=== PATIENT | male | born 1945 | race Caucasian/White ===

== ENCOUNTER → 2018-02-28 09:06 | Outpatient (CLI) | payer MEDICARE, OTHER, SELFPAY ==
[2018-02-28 10:35] LABS: Alanine Aminotransferase 39 IU/L (21-72); Aspartate Aminotransferase 34 IU/L (17-59); Cholesterol 146 mg/dL (140-199); HDL Cholesterol 60 mg/dL (40-60); LDL Cholesterol Calculated 72 mg/dL (<100); Triglycerides 68 mg/dL (35-150)
== END ==
PROVIDERS: PCP Internal Medicine; Visit Provider Internal Medicine
DX: E78.5 Hyperlipidemia, unspecified (principal)
CPT/HCPCS: 36415; 80061; 84450; 84460

== ENCOUNTER → 2018-12-26 10:55 | Outpatient (CLI) | payer MEDICARE, OTHER, SELFPAY ==
--- NOTE | 2018-12-26 | DI.US.S_ITS ---
PROCEDURE: US AXILLARY ONLY INDICATIONS: PERSONAL HISTORY OF MALIGNANT MELANOMA OF SKIN TECHNIQUE: Real-time focused scanning was performed of the left axilla, with image documentation. COMPARISON: None. FINDINGS: Ultrasound evaluation in the left axilla demonstrates no enlarged axillary lymph nodes. No discrete mass or fluid collection identified. IMPRESSION: 1. No enlarged lymph node or mass demonstrated in the left axilla. Dictated by: Yash Estrada M.D. on 12/27/2018 at 14:16 Approved by: Yash Estrada M.D. on 12/27/2018 at 14:18
== END ==
PROVIDERS: Family Provider Internal Medicine; PCP Internal Medicine; Visit Provider Physician Assistant
DX: Z85.820 Personal history of malignant melanoma of skin (principal)
CPT/HCPCS: 76882

== ENCOUNTER → 2019-04-20 08:19 | Outpatient (CLI) | payer MEDICARE, OTHER, SELFPAY ==
[2019-04-20 10:08] LABS: Cholesterol 247 mg/dL (140-199); HDL Cholesterol 53 mg/dL (40-60); LDL Cholesterol Calculated 173 mg/dL (<100); Triglycerides 105 mg/dL (35-150)
[2019-04-22 21:54] LABS: Lipoprotein (a) 54 nmol/L (<75)
== END ==
PROVIDERS: PCP Internal Medicine; Visit Provider Internal Medicine Cardiovascular Disease
DX: E78.49 Other hyperlipidemia (principal)
CPT/HCPCS: 36415; 80061; 83695

== ENCOUNTER → 2019-06-07 08:27 | Outpatient (CLI) | payer MEDICARE, OTHER, SELFPAY ==
[2019-06-07 09:09] LABS: HEMOLYSIS < 15 (0-50)
[2019-06-07 09:23] LABS: Alanine Aminotransferase 19 IU/L (21-72); Aspartate Aminotransferase 28 IU/L (17-59); BUN Creatinine Ratio 17.1 (6-22); Blood Urea Nitrogen 12 mg/dL (9-20); Calcium 9.5 mg/dL (8.4-10.2); Carbon Dioxide 28 mmol/L (22-32); Chloride 107 mmol/L (98-107); Cholesterol 254 mg/dL (140-199); Estimated Glomerular Filt Rate > 60.0 mL/min (>60); Glucose 104 mg/dL (80-110); HDL Cholesterol 43 mg/dL (40-60); LDL Cholesterol Calculated 193 mg/dL (<100); Potassium 4.5 mmol/L (3.4-5.1); Sodium 139 mmol/L (137-145); Triglycerides 90 mg/dL (35-150)
[2019-06-07 09:54] LABS: Vitamin D 25 Hydroxy (D3) 31.9 ng/mL (30.0-100.0)
[2019-06-07 15:17] LABS: Prostate Specific Antigen Scrn 4.85 ng/mL (0.1-4.0)
== END ==
PROVIDERS: PCP Internal Medicine; Visit Provider Internal Medicine
DX: Z13.1 Encounter for screening for diabetes mellitus (principal); Z12.5 Encounter for screening for malignant neoplasm of prostate; E78.5 Hyperlipidemia, unspecified; E55.9 Vitamin D deficiency, unspecified
CPT/HCPCS: 36415; 80048; 80061; 82306; 84450; 84460; G0103

== ENCOUNTER → 2020-03-11 06:56 | Outpatient (CLI) | payer MEDICARE, OTHER, SELFPAY ==
[2020-03-11 08:43] LABS: Cholesterol 294 mg/dL (140-199); HDL Cholesterol 47 mg/dL (40-60); LDL Cholesterol Calculated 217 mg/dL (<100); Triglycerides 150 mg/dL (35-150)
[2020-03-13 08:12] LABS: Cholesterol, Total 307 mg/dL (100-199); HDL-Cholesterol 55 mg/dL (>39); HDL-Particle (Total) 36.1 umol/L (>=30.5); LDL Particle 2786 nmol/L (<1000); LDL Size 20.9 nm (>20.5); LDL-Cholsterol 225 mg/dL (0-99); LP-IR Score 65 (<=45); Small LDL- Particle 1544 nmol/L (<=527); Triglycerides 136 mg/dL (0-149)
== END ==
PROVIDERS: PCP Internal Medicine; Referring Provider Internal Medicine; Visit Provider Internal Medicine
DX: E78.5 Hyperlipidemia, unspecified (principal)
CPT/HCPCS: 36415; 80061; 83704

== ENCOUNTER → 2020-04-15 11:48 | Outpatient (CLI) | payer MEDICARE, OTHER, SELFPAY ==
[2020-04-15 14:14] LABS: BUN Creatinine Ratio 14.5 (6-22); Blood Urea Nitrogen 12 mg/dL (9-20); Calcium 9.4 mg/dL (8.4-10.2); Carbon Dioxide 27 mmol/L (22-32); Chloride 102 mmol/L (98-107); Estimated Glomerular Filt Rate > 60.0 mL/min (>60); Glucose 111 mg/dL (80-110); HEMOLYSIS < 15 (0-50); Sodium 137 mmol/L (137-145)
== END ==
PROVIDERS: PCP Internal Medicine; Referring Provider Physician Assistant; Visit Provider Physician Assistant
DX: Z85.820 Personal history of malignant melanoma of skin (principal)
CPT/HCPCS: 36415; 80048

== ENCOUNTER → 2020-04-17 11:03 | Outpatient (CLI) | payer MEDICARE, OTHER, SELFPAY ==
--- NOTE | 2020-04-17 12:05 | DI.CT.S_ITS ---
PROCEDURE: CT CHEST ABD PEL W CON INDICATIONS: PERSONAL HISTORY OF SKIN CANCER TECHNIQUE: After the administration of oral and intravenous contrast, 5 mm thick sections acquired from the lung apices to the symphysis. 5 mm coronal and sagittal reformats were performed, with additional 7 mm coronal MIP reformats through the lungs. For radiation dose reduction, the following was used: automated exposure control, adjustment of mA and/or kV according to patient size. COMPARISON: None. FINDINGS: Image quality: Excellent. CHEST: Lungs and pleura: No acute airspace opacities. Note is made of linear scarring at each lung base and a small degree of lung parenchyma and pleural scarring at each apex. No pleural effusions or pneumothorax. Central and peripheral airways appear patent and normal in caliber. Mediastinum: Heart size is normal. No pericardial effusion. No mediastinal or hilar adenopathy by size criteria. Thoracic aorta and central pulmonary arteries are normal in size. Esophagus is normal in caliber. No hiatal hernia. Chest wall: No axillary or supraclavicular adenopathy by size criteria. Thyroid gland contains a hypodensity at the middle 3rd of the right thyroid lobe, measuring up to 1.1 cm in maximal dimension, and potentially simply a cyst but possibly a low-density thyroid nodule.. ABDOMEN: Solid organs: Liver is normal in size and enhancement. Gallbladder appears normal . Biliary system is non dilated. Pancreas enhances normally. Spleen is normal in size and enhancement. No adrenal nodules. Kidneys demonstrate normal size and enhancement, without hydronephrosis. Peritoneum and bowel: Bowel loops demonstrate normal wall thickness and caliber. No free fluid or air. Nodes and vessels: No retroperitoneal or mesenteric adenopathy by size criteria. Aorta and inferior vena cava are normal in size. There is a retro aortic left renal vein. Miscellaneous: No ventral hernias. PELVIS: Genitourinary: Bladder wall thickness is normal. Miscellaneous: No inguinal hernias or adenopathy. Prior arthroplasty right hip, metal artifact mildly degrades quality of visualization of the lower pelvis. Bones: No suspicious bony lesions. No vertebral body compression fractures. IMPRESSION: Mild lung parenchymal scarring, both at each lung base and at the upper lungs bilaterally. No sign of the skin lesion, no evidence of metastatic disease. Please specify the type of skin cancer if possible. Note is made of a hypodensity within the right thyroid lobe, measuring up to 1.1 cm. A more accurate assessment could be made with thyroid ultrasound. Dictated by: Dave Saul M.D. on 04/17/2020 at 13:47 Approved by: Dave Saul M.D. on 04/17/2020 at 13:53
== END ==
PROVIDERS: PCP Internal Medicine; Referring Provider Physician Assistant; Visit Provider Physician Assistant
DX: R22.2 Localized swelling, mass and lump, trunk (principal); Z85.820 Personal history of malignant melanoma of skin; J98.4 Other disorders of lung; Z96.641 Presence of right artificial hip joint
CPT/HCPCS: 71260; 74177

== ENCOUNTER → 2020-05-01 10:56 | Outpatient (CLI) | payer MEDICARE, OTHER, SELFPAY ==
--- NOTE | 2020-05-01 | DI.US.S_ITS ---
PROCEDURE: US THYROID INDICATIONS: NODULES TECHNIQUE: Real-time scanning was performed of the thyroid gland, with image documentation. COMPARISON: None. FINDINGS: Right: Thyroid lobe measures 5.7 x 1.7 x 2.0 cm, and is homogeneous in echotexture. Multiple colloid cysts, largest measuring 1.2 cm. Left: Thyroid lobe measures 3.8 x 1.4 x 1.7 cm, and is homogenous in echotexture. 3 mm colloid cyst. Isthmus: 3.3 mm thick. IMPRESSION: Small bilateral colloid cysts. Dictated by: Jakub Neumann [facility] Interpreted: Jaspreet Mathur MD on 05/01/2020 at 15:48 Approved by: Jaspreet Mathur M.D. on 05/01/2020 at 16:00
== END ==
PROVIDERS: PCP Internal Medicine; Referring Provider Physician Assistant; Visit Provider Physician Assistant
DX: E04.2 Nontoxic multinodular goiter (principal)
CPT/HCPCS: 76536

== ENCOUNTER → 2020-06-16 10:05 | Outpatient (CLI) | payer MEDICARE, OTHER, SELFPAY ==
[2020-06-16 11:40] LABS: Alanine Aminotransferase 29 IU/L (<50); Aspartate Aminotransferase 44 IU/L (17-59); Cholesterol 147 mg/dL (140-199); HDL Cholesterol 49 mg/dL (40-60); LDL Cholesterol Calculated 82 mg/dL (<100); Triglycerides 82 mg/dL (35-150)
== END ==
PROVIDERS: PCP Internal Medicine; Referring Provider Internal Medicine; Visit Provider Internal Medicine
DX: E78.5 Hyperlipidemia, unspecified (principal)
CPT/HCPCS: 36415; 80061; 84450; 84460

== ENCOUNTER → 2020-12-11 07:49 | Outpatient (CLI) | payer MEDICARE, OTHER, SELFPAY ==
[2020-12-11 09:17] LABS: Alanine Aminotransferase 31 IU/L (<50); Albumin 4.1 g/dL (3.5-5.0); Albumin Globulin Ratio 1.8 (1.0-2.8); Alkaline Phosphatase 56 U/L (38-126); Aspartate Aminotransferase 43 IU/L (17-59); BUN Creatinine Ratio 17.1 (6-22); Bilirubin Total 0.6 mg/dL (0.2-1.3); Blood Urea Nitrogen 13 mg/dL (9-20); Calcium 9.3 mg/dL (8.4-10.2); Carbon Dioxide 27 mmol/L (22-32); Chloride 105 mmol/L (98-107); Cholesterol 160 mg/dL (140-199); Estimated Glomerular Filt Rate > 60.0 mL/min (>60); Globulin 2.3 g/dL (1.7-4.1); Glucose 108 mg/dL (80-110); HDL Cholesterol 49 mg/dL (40-60); HEMOLYSIS < 15 (0-50); LDL Cholesterol Calculated 90 mg/dL (<100); Potassium 4.6 mmol/L (3.4-5.1); Sodium 139 mmol/L (137-145); Total Protein 6.4 g/dL (6.3-8.2); Triglycerides 107 mg/dL (35-150)
== END ==
PROVIDERS: PCP Internal Medicine; Referring Provider Internal Medicine; Visit Provider Internal Medicine
DX: E78.5 Hyperlipidemia, unspecified (principal)
CPT/HCPCS: 36415; 80053; 80061

== ENCOUNTER → 2021-06-09 07:59 | Outpatient (CLI) | payer MEDICARE, OTHER, SELFPAY ==
[2021-06-09 09:01] LABS: Alanine Aminotransferase 26 IU/L (<50); Albumin 4.4 g/dL (3.5-5.0); Albumin Globulin Ratio 1.8 (1.0-2.8); Alkaline Phosphatase 52 U/L (38-126); Aspartate Aminotransferase 35 IU/L (17-59); BUN Creatinine Ratio 14.9 (6-22); Bilirubin Total 0.7 mg/dL (0.2-1.3); Blood Urea Nitrogen 11 mg/dL (9-20); Calcium 9.4 mg/dL (8.4-10.2); Carbon Dioxide 28 mmol/L (22-32); Chloride 107 mmol/L (98-107); Cholesterol 162 mg/dL (140-199); Estimated Glomerular Filt Rate > 60.0 mL/min (>60); Globulin 2.5 g/dL (1.7-4.1); Glucose 101 mg/dL (80-110); HDL Cholesterol 47 mg/dL (40-60); HEMOLYSIS < 15 (0-50); LDL Cholesterol Calculated 97 mg/dL (<100); Potassium 4.5 mmol/L (3.4-5.1); Sodium 142 mmol/L (137-145); Total Protein 6.9 g/dL (6.3-8.2); Triglycerides 88 mg/dL (35-150)
[2021-06-09 09:51] LABS: Hep C Virus Ab w/Reflex Quant NEGATIVE s/c (NEGATIVE)
[2021-06-10 09:00] LABS: PSA Free % 18.9 % (.); PSA, Total 5.4 ng/mL (0.0-4.0)
== END ==
PROVIDERS: PCP Internal Medicine; Referring Provider Internal Medicine; Visit Provider Internal Medicine
DX: E78.5 Hyperlipidemia, unspecified (principal); Z12.5 Encounter for screening for malignant neoplasm of prostate; Z11.59 Encounter for screening for other viral diseases
CPT/HCPCS: 36415; 80053; 80061; 84153; 84154; 86803; G0103

== ENCOUNTER → 2021-12-25 14:32 | Outpatient (CLI) | payer MEDICARE, OTHER, SELFPAY ==
--- NOTE | 2021-12-25 14:35 | DI.CT.S_ITS ---
PROCEDURE: CT ABDOMEN PELVIS W CON INDICATIONS: Epigastric pain TECHNIQUE: After the administration of oral and intravenous contrast, axial sections were acquired from the lung bases to the pubic symphysis. Coronal and sagittal reformats were performed. For radiation dose reduction, the following was used: automated exposure control, adjustment of mA and/or kV according to patient size. COMPARISON:[facility], CT, CT CHEST ABD PEL W CON, 04/17/2020, 11:54. FINDINGS: Image quality: Excellent. Lung bases: There are several partially imaged pulmonary nodules in the right lower lobe measuring up to 1.1 cm (image 16/series 5). Heart: No significant findings. ABDOMEN: Liver: There are innumerable variably sized hepatic hypodense lesions scattered throughout the liver. These are a new finding and concerning for metastatic disease. Gallbladder: Unremarkable. Biliary ducts: No intrahepatic or extrahepatic biliary ductal dilatation identified. Pancreas: There is an oval hypodense mass identified at the level of the pancreatic body/neck junction it appears to be outside of the pancreas with associated mass effect upon the ventral margin of the pancreas and the dorsal aspect of the adjacent gastric antrum. This mass measures approximately 3.3 x 2.9 cm in axial transverse dimension (image 32/series 2) and approximately 3.0 cm in craniocaudal dimension. Pancreas otherwise demonstrates homogeneous enhancement without focal lesions or pancreatic ductal dilatation. No peripancreatic inflammation or organized fluid collections. Spleen: Unremarkable. Adrenal Glands: Unremarkable. Kidneys and Ureters: Kidneys are symmetric in size and enhancement, and there is no obstructive uropathy. No perinephric inflammatory changes. Ureters are normal in course and caliber. Stomach and Bowel: Stomach, small bowel loops, and colon are unremarkable. A few scattered colonic diverticula without evidence for acute diverticulitis. Peritoneum: No abnormal intraperitoneal fluid. No free air. Ventral Wall: No hernia. Abdominal Nodes: Multiple scattered enlarged retroperitoneal lymph nodes are identified. The largest are seen near the level of the renal veins measuring 1.8 x 2.5 cm (image 34/series 2). A few prominent periportal lymph nodes are also present. Vessels: Aorta and inferior vena cava are normal in size. PELVIS: Pelvic Organs: Unremarkable. Bladder: Unremarkable. Pelvic Nodes: No pelvic sidewall lymphadenopathy. Miscellaneous: No inguinal hernias are seen. Bones: Status post right total hip arthroplasty. As before, right hip surgical hardware causes significant beam hardening/streak artifact which obscures visualization of the lower pelvic structures. No acute compression fracture seen. Moderate multilevel spondylitic changes seen throughout the imaged spine. There is a possible ill-defined lucency involving the lateral aspect of the right 9th rib demonstrating mild cortical irregularity. No definite fracture or overlying mass seen. IMPRESSION: 1. Innumerable hepatic hypodensities worrisome for hepatic metastases. 2. Incompletely evaluated right lower lobe pulmonary nodules, also suspicious for metastatic disease. 3. Numerous enlarged retroperitoneal lymph nodes and prominent periportal lymph nodes which are also suspicious for metastatic disease. 4. A 3.3 cm oval hypodense mass situated between the posterior wall of the distal gastric antrum and ventral margin of the pancreas which may represent a focal mass versus lymphadenopathy. No evidence for acute inflammatory changes of the pancreas. 5. Possible ill-defined osteolytic lesion involving the lateral aspect of the right 9th rib. 6. Colonic diverticulosis without acute diverticulitis. 7. Status post right total hip arthroplasty. 8. . Moderate multilevel spondylosis of the imaged spine. No evidence for acute compression fractures. Findings were discussed with Dr. Shah at 1650 hrs. Dictated by: Jermaine Lutz M.D. on 12/25/2021 at 16:33 Approved by: Jermaine Lutz M.D. on 12/25/2021 at 17:01
== END ==
PROVIDERS: PCP Internal Medicine; Referring Provider Internal Medicine; Visit Provider Internal Medicine
DX: R10.13 Epigastric pain (principal); K76.9 Liver disease, unspecified; R91.8 Other nonspecific abnormal finding of lung field; R59.0 Localized enlarged lymph nodes; K57.90 Diverticulosis of intestine, part unspecified, without perforation or abscess without bleeding; M47.816 Spondylosis without myelopathy or radiculopathy, lumbar region; Z96.641 Presence of right artificial hip joint
CPT/HCPCS: 74177; Q9967

== ENCOUNTER → 2022-01-20 11:12 | Outpatient (CLI) | payer MEDICARE, OTHER, SELFPAY ==
--- NOTE | 2022-01-20 | DI.MRI.S_ITS ---
PROCEDURE: MR HEAD/BRAIN WO/W CON INDICATIONS: Secondary malignant neoplasm of brain TECHNIQUE: Noncontrast axial T1 spin echo, axial T2 fast spin echo, sagittal and axial FLAIR, coronal T2 fast spin echo, axial gradient echo, axial diffusion and ADC through the brain. After the administration of contrast, axial and coronal T1 spin echo with fat saturation through the brain. COMPARISON: [facility], CT, CT CHEST W CON, 01/20/2022, 12:00. Outside Facility, RG, CT HEAD WITH CONTRAST, 01/08/2022, 7:11. FINDINGS: Image quality: Excellent. CSF spaces: Basal cisterns are patent. No extra-axial fluid collections. Ventricles are normal in size and shape. Brain: Approximately a mild enhancing foci can be seen within the brain, which are largely centered along the birch-white matter junctions. However, there is also focus seen within the left thalamus measuring 6 mm, as on series 13, image 81. The largest solitary focus can be seen within the inferior right temporal lobe measuring 1 cm, as on series 13, image 52. Mild surrounding edema can be seen. No midline shift. There is cerebral volume loss for age. There is periventricular white matter chronic small vessel ischemic change. The brainstem appears normal. Diffusion-weighted images demonstrate no acute ischemic insults. No chronic ischemic insults. Normal intravascular flow voids are present. Skull and face: Calvarial marrow is normal in signal. Orbits appear normal. Sinuses: Sinuses and mastoids appear clear. IMPRESSION: Approximately 8 mildly enhancing intracranial lesions, which are mostly seen along the birch-white matter junctions. The largest of these foci measures up to 1 cm. These represent metastatic disease until proven otherwise Dictated by: Johnathon Berger M.D. on 01/20/2022 at 11:34 Approved by: Johnathon Berger M.D. on 01/20/2022 at 11:40
--- NOTE | 2022-01-20 | DI.CT.S_ITS ---
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 1 mm axial lung, 5 mm thick coronal and sagittal reformats and 7 mm axial MIP were acquired. For radiation dose reduction, the following was used: automated exposure control, adjustment of mA and/or kV according to patient size. COMPARISON: [facility], CT, CT CHEST ABD PEL W CON, 04/17/2020, 11:54. [facility], CT, CT ABDOMEN PELVIS W CON, 12/25/2021, 16:09. FINDINGS: Image quality: Excellent. Lungs and pleura: Several discrete pulmonary soft tissue nodules are seen. Right upper lobe, series 3, image 107, 10 x 8 mm, new Left upper lobe, series 3, image 142, 11 x 11 mm, new Lingula laterally, series 3, image 168, 4 x 3 mm, new Right middle lobe medially, series 3, image 172, 6 x 5 mm, new No pleural effusions or pneumothorax. Mild dependent atelectasis can be seen. Central and peripheral airways are patent and normal in caliber. Mediastinum: Heart size is normal. No pericardial effusion. No mediastinal or hilar adenopathy by size criteria. Thoracic aorta and central pulmonary arteries are normal in size. Esophagus is normal in caliber. No hiatal hernia. Bones and chest wall: A few low-density lesions can be seen within the bones, with the most suspicious of these seen on series 6, image 39 within the T9 vertebral body. Focal sclerosis can be seen within the right medial 3rd rib, which is similar to the prior examination and most likely related to a benign bone island. No vertebral body compression fractures. Age-appropriate bony degenerative changes are seen. No axillary or supraclavicular adenopathy by size criteria. Thyroid gland demonstrates generalized prominence, with a discrete stable nodule seen on the right measuring 1 cm. Abdomen: Numerous low-density liver masses are seen, which have clearly progressed compared to the prior CT examination. Generalized thickening is seen of the adrenal glands. There is a left retroperitoneal lymph node seen on series 2 image 64 measuring 16 x 12 mm. The visualized portions of the upper abdominal structures are otherwise unremarkable for imaging technique. IMPRESSION: New pulmonary nodules are seen, which represent metastatic disease until proven otherwise. Worsening of liver metastatic disease, compared to the recent MRI dated 12/25/2021. Generalized thickening is seen of the adrenal glands, also most likely related to metastatic involvement. There is an enlarged left retroperitoneal lymph node seen, which is also most likely related to metastasis. More subtle lytic lesions can be seen within the bones, which are also suspicious for metastatic disease. Incidental note is made of: Stable right thyroid nodule Dictated by: Johnathon Berger M.D. on 01/20/2022 at 14:56 Approved by: Johnathon Berger M.D. on 01/20/2022 at 15:05
== END ==
PROVIDERS: PCP Internal Medicine; Referring Provider Internal Medicine Medical Oncology; Visit Provider Internal Medicine Medical Oncology
DX: C79.31 Secondary malignant neoplasm of brain (principal); C78.7 Secondary malignant neoplasm of liver and intrahepatic bile duct; C78.01 Secondary malignant neoplasm of right lung; C78.02 Secondary malignant neoplasm of left lung; C80.1 Malignant (primary) neoplasm, unspecified; E27.9 Disorder of adrenal gland, unspecified; M89.9 Disorder of bone, unspecified; R59.0 Localized enlarged lymph nodes; E04.1 Nontoxic single thyroid nodule; R10.13 Epigastric pain
CPT/HCPCS: 70553; 71260; Q9967

== ENCOUNTER 2022-01-26 15:44 | Emergency (ER) | payer MEDICARE, OTHER, SELFPAY ==
[2022-01-26 15:47] VITALS: BP 105/56; PULSE 87; RESP 18; TEMP 36.3; O2SAT 95
[2022-01-26 17:04] LABS: Alanine Aminotransferase 42 IU/L (<50); Albumin 3.4 g/dL (3.5-5.0); Albumin Globulin Ratio 1.1 (1.0-2.8); Alkaline Phosphatase 437 U/L (38-126); Aspartate Aminotransferase 131 IU/L (17-59); BUN Creatinine Ratio 21.3 (6-22); Bilirubin Total 0.9 mg/dL (0.2-1.3); Blood Urea Nitrogen 20 mg/dL (9-20); Calcium 8.7 mg/dL (8.4-10.2); Carbon Dioxide 35 mmol/L (22-32); Chloride 87 mmol/L (98-107); Estimated Glomerular Filt Rate > 60 mL/min (>60); Glucose 116 mg/dL (80-110); HEMOLYSIS < 15 (0-50); Lipase 26 U/L (23-300); Potassium 4.3 mmol/L (3.4-5.1); Sodium 128 mmol/L (137-145); Total Protein 6.4 g/dL (6.3-8.2)
[2022-01-26 17:08] LABS: Add Manual Diff / Slide Review NO; Basophils Absolute Auto 0 /uL (0-100); Basophils Percent Auto 0.5 % (0-2); Eosinophils Absolute Auto 200 /uL (0-450); Eosinophils Percent Auto 1.8 % (2-4); Hematocrit 38.9 % (41-53); Lymphocytes Absolute Auto 1700 /uL (1100-4500); Lymphocytes Percent Auto 17.8 % (25-40); Mean Corpuscular HGB Conc 33.3 % (30-36); Mean Corpuscular Hemoglobin 27.8 PG (26-34); Mean Corpuscular Volume 83.6 fL (80-100); Monocytes Absolute Auto 600 /uL (0-900); Monocytes Percent Auto 6.4 % (3-14); Neutrophils Absolute Auto 7200 /uL (1500-7000); Neutrophils Percent Auto 73.5 % (50-75); Platelet Count 383 X10^3/uL (150-400); Red Blood Cell Count 4.66 X10^6/uL (4.5-5.9); White Blood Cell Count 9.8 X10^3/uL (4.5-11.0)
--- NOTE | 2022-01-26 19:45 | ED.MALEGU ---
HPI - Male Genitourinary General Chief complaint: Urogenital-Male Stated complaint: blood in bladder, sent by in [place] Time Seen by Provider: 01/26/22 19:01 Source: patient Mode of arrival: Ambulatory History of Present Illness HPI Narrative: 76-year-old male nonsmoker with intra-abdominal melanoma managed by the [facility] presents at their request for evaluation of hematuria over the past few days. He denies any dizziness, weakness or lightheadedness. He has no chest pain or shortness of breath. He states that he has chronic generalized abdominal pain but did have a brief sharp and sudden onset pain in his left groin yesterday that has since resolved. He denies any recurrence of that pain. His generalized pain is constant intense be worse with motion and improves with rest. He does take chronic pain medications and due to increased symptoms as of late he had been increasing the frequency of his oxycodone use. He denies any significant change in bowel habits. He has been having blood in his urine for at least the past 2 days but denies frequency or urgency. Related Data Home Medications Medication Instructions Recorded Confirmed rosuvastatin 10 mg tablet 10 mg PO DAILY 11/23/21 11/23/21 Previous Rx's Medication Instructions Recorded cyclobenzaprine 10 mg tablet 10 mg PO TID PRN #14 tab 11/23/21 cephalexin 500 mg capsule 500 mg PO BID #10 cap 01/26/22 Allergies Allergy/AdvReac Type Severity Reaction Status Date / Time PENICILLIN Allergy Severe unknown Uncoded 11/23/21 09:14 Review of Systems Review of Systems Narrative: GENERAL: Denies chills, fatigue, malaise, fever, sweats. HEENT: Denies sinus pain, ear pain, sore throat, difficulty swallowing, dizziness. RESPIRATORY: Denies dyspnea, cough, wheezing, hemoptysis, sputum. CARDIOVASCULAR: Denies chest pain, palpitations, orthopnea, edema, GASTROINTESTINAL: see hpi : see hpi MUSCULOSKELETAL: denies weakness, joint pain, or bony pain SKIN: Denies rash, skin lesions, or other NEUROLOGIC: Denies weakness, headache, numbness, change in speech, confusion, seizures, incoordination. PSYCHIATRIC: No concerning psychosocial issues. 12 point review of systems is negative except for those stated above Patient History Medical History Local reaction to bee sting Social History Smoking Status: Never smoker Smoking Status: Never smoker Exam Narrative Exam Narrative: GENERAL: [76] year old patient appears stated age. Well-developed patient, in mild distress. HEAD: Atraumatic. Normocephalic. EYES: Pupils equal round and reactive. Extraocular motions intact. No scleral icterus. No injection or drainage. ENT: Nose without bleeding, purulent drainage. Throat without erythema, tonsillar hypertrophy or exudate. Airway patent. NECK: Trachea midline. Non tender CARDIOVASCULAR: Regular rate and rhythm without murmurs, gallops, or rubs. RESPIRATORY: Clear to auscultation. Breath sounds equal bilaterally. No wheezes, rales, or rhonchi. GASTROINTESTINAL: Abdomen soft, moderately tender to palp throughout, nondistended. EXTREMITIES: No edema or joint tenderness. BACK: Nontender without deformity or crepitance. No flank tenderness. NEURO: AOx3. SKIN: No rash or erythema of visible areas Initial Vital Signs Initial Vital Signs: Vital Signs Temperature 97.4 F L 01/26/22 15:47 Pulse Rate 87 01/26/22 15:47 Respiratory Rate 18 01/26/22 15:47 Blood Pressure 105/56 L 01/26/22 15:47 Pulse Oximetry 95 01/26/22 15:47 Course Orders Ordered: ED Orders 01/26/22 20:03 IVP [CT abdomen pelvis wo/w con] Stat Ictotest Urine Stat Urinalysis and Microscopic Stat Urine Culture Stat Discontinued Medications Cefazolin Sodium (Cephalexin 250 Mg Prepack) 1 bottle MISC SEEINSTR ONE Stop: 01/26/22 21:29 Last Admin: 01/26/22 21:39 Dose: 1 pack Documented by: [email or web address] Vital Signs Vital signs: Vital Signs - 8 hr 01/26/22 20:41 01/26/22 21:52 Pulse Rate 78 79 Respiratory Rate 18 Blood Pressure 115/58 L 118/66 Pulse Oximetry 94 99 MDM - Male Genitourinary Lab Data Result diagrams: 01/26/22 15:58 01/26/22 15:58 Labs: Lab Results 01/26/22 01/26/22 01/26/22 Range/Units 15:55 15:58 15:58 WBC 9.8 (4.5-11.0) X10^3/uL RBC 4.66 (4.5-5.9) X10^6/uL Hgb 13.0 L (13.5-17.5) g/dL Hct 38.9 L (41-53) % MCV 83.6 (80-100) fL MCH 27.8 (26-34) PG MCHC 33.3 (30-36) % RDW 14.0 (11.6-14.8) % Plt Count 383 (150-400) X10^3/uL Neut % (Auto) 73.5 (50-75) % Lymph % (Auto) 17.8 L (25-40) % [place] % (Auto) 6.4 (3-14) % Eos % (Auto) 1.8 L (2-4) % Baso % (Auto) 0.5 (0-2) % Neut # (Auto) 7200 H (0317-2982) /uL Lymph # (Auto) 1700 (4479-7219) /uL [place] # (Auto) 600 (0-900) /uL Eos # (Auto) 200 (0-450) /uL Baso # (Auto) 0 (0-100) /uL PT 15.8 H (10.1-12.7) SECONDS INR 1.4 H (0.9-1.3) Sodium 128 L (137-145) mmol/L Potassium 4.3 (3.4-5.1) mmol/L Chloride 87 L (98-107) mmol/L Carbon Dioxide 35 H (22-32) mmol/L BUN 20 (9-20) mg/dL Creatinine 0.94 (0.66-1.25) mg/dL Estimated GFR > 60 (>60) mL/min BUN/Creatinine Ratio 21.3 (6-22) Glucose 116 H (80-110) mg/dL Calcium 8.7 (8.4-10.2) mg/dL Total Bilirubin 0.9 (0.2-1.3) mg/dL AST 131 H (17-59) IU/L ALT 42 (<50) IU/L Alkaline Phosphatase 437 H (38-126) U/L Total Protein 6.4 (6.3-8.2) g/dL Albumin 3.4 L (3.5-5.0) g/dL Globulin 3.0 (1.7-4.1) g/dL Albumin/Globulin Ratio 1.1 (1.0-2.8) Lipase 26 (23-300) U/L Urine Color Urine Appearance Urine pH (4.5-8.0) Ur Specific [place] (1.000-1.035) Urine Protein (Negative) Urine Glucose (UA) (Negative) g/dL Urine Ketones (NEGATIVE) Urine Occult Blood (Negative) Urine Nitrate (Negative) Urine Bilirubin (NEGATIVE) Ur Bilirubin Confirm (Negative) Urine Urobilinogen (0.2) E.U./dL Ur Leukocyte Esterase (NEGATIVE) Urine RBC (0-5/HPF) Urine WBC (0-5/HPF) Ur Squamous Epith Cells (0-5/HPF) Urine Bacteria (None) Ur Culture Indicated? 01/26/22 Range/Units 20:03 WBC (4.5-11.0) X10^3/uL RBC (4.5-5.9) X10^6/uL Hgb (13.5-17.5) g/dL Hct (41-53) % MCV (80-100) fL MCH (26-34) PG MCHC (30-36) % RDW (11.6-14.8) % Plt Count (150-400) X10^3/uL Neut % (Auto) (50-75) % Lymph % (Auto) (25-40) % [place] % (Auto) (3-14) % Eos % (Auto) (2-4) % Baso % (Auto) (0-2) % Neut # (Auto) (8577-9425) /uL Lymph # (Auto) (8535-8007) /uL [place] # (Auto) (0-900) /uL Eos # (Auto) (0-450) /uL Baso # (Auto) (0-100) /uL PT (10.1-12.7) SECONDS INR (0.9-1.3) Sodium (137-145) mmol/L Potassium (3.4-5.1) mmol/L Chloride (98-107) mmol/L Carbon Dioxide (22-32) mmol/L BUN (9-20) mg/dL Creatinine (0.66-1.25) mg/dL Estimated GFR (>60) mL/min BUN/Creatinine Ratio (6-22) Glucose (80-110) mg/dL Calcium (8.4-10.2) mg/dL Total Bilirubin (0.2-1.3) mg/dL AST (17-59) IU/L ALT (<50) IU/L Alkaline Phosphatase (38-126) U/L Total Protein (6.3-8.2) g/dL Albumin (3.5-5.0) g/dL Globulin (1.7-4.1) g/dL Albumin/Globulin Ratio (1.0-2.8) Lipase (23-300) U/L Urine Color [place] Urine Appearance Cloudy Urine pH 5.0 (4.5-8.0) Ur Specific [place] 1.015 (1.000-1.035) Urine Protein 2+ H (Negative) Urine Glucose (UA) Trace H (Negative) g/dL Urine Ketones Trace H (NEGATIVE) Urine Occult Blood 3+ H (Negative) Urine Nitrate Negative (Negative) Urine Bilirubin 1+ H (NEGATIVE) Ur Bilirubin Confirm Negative (Negative) Urine Urobilinogen 0.2 (0.2) E.U./dL Ur Leukocyte Esterase Trace H (NEGATIVE) Urine RBC 30-100/hpf H (0-5/HPF) Urine WBC 1-5/hpf (0-5/HPF) Ur Squamous Epith Cells 1-5 /hpf (0-5/HPF) Urine Bacteria Moderate (10-30) H (None) Ur Culture Indicated? Specimen cultured Imaging Data CT scan - abdomen/pelvis: Radiologist's Impression: [place] [address] CT Scan Report Signed Patient: Jabari Torre MR#: [id number] : 1945 Acct:[id number] Age/Sex: 76 / M Date of Service: 01/26/22 Loc: ED Accession Number: [id number] ?? Procedure: CT abdomen pelvis wo/w con Ordering Provider: Jeremiah Bustamante D.O. PROCEDURE:? CT ABDOMEN PELVIS WO/W CON ? INDICATIONS:? painless hematuria, sent by [facility] ? TECHNIQUE:? 5 mm thick noncontrast images acquired from the diaphragm to the symphysis pubis.? After the administration of intravenous contrast, 5 mm thick images acquired from the diaphragm to the symphysis pubis after a 10-minute delay.? 2 mm thick coronal and sagittal reformats were then performed of the kidneys and ureters.? For radiation dose reduction, the following was used:? automated exposure control, adjustment of mA and/or kV according to patient size.? ? COMPARISON:? [facility], CT, CT ABDOMEN PELVIS W CON, 12/25/2021, 16:09. ? FINDINGS:? Image quality:? There is metallic streak artifact from patient's right hip prosthesis.? ? Lung bases:? There are small bilateral pleural effusions with associated compressive atelectasis.? There also new areas of consolidation in the lower lobes.? There are bilateral pulmonary nodules redemonstrated within the lung bases.? These appear slightly increased in size, with a merchandiser retail representative nodule medially in the right middle lobe measuring up to 0.6 cm on series 6, image 4 compared to 0.5 cm previously.? Medially in the left lower lobe, there is a nodule measuring up to 1.0 cm on series 6, image 14 slightly increased in size from 0.8 cm previously.? Heart size is normal.? ? Urinary system:? Both kidneys are normal in size, without hydronephrosis or nephrolithiasis.? There is mild nonspecific perinephric fat stranding.? There is normal bilateral renal enhancement without a discrete renal mass identified.? Renal calyces appear normal in morphology when filled with contrast without suspicious filling defects. ?Opacified portions of both ureters demonstrate normal caliber.? There is an intraluminal mass along the left anterior bladder dome measuring approximately 2.3 x 1.5 x 2.5 cm (53 and ).? There is also masslike lobulated wall thickening along the left lateral and inferior bladder wall. ? Other solid organs:? Innumerable peripherally enhancing mass lesions within the liver demonstrate interval increase in size.? A merchandiser retail representative mass within segment 2 of the left hepatic lobe (5/45) measures up to 4.3 x 3.8 cm in transverse dimension compared to 3.2 x 2.1 cm previously.? A merchandiser retail representative mass medially in segment 7 of the right hepatic lobe measures up to 4.0 x 3.5 cm (5/33) compared to 2.6 x 2.0 cm previously.? The gallbladder appears within normal limits without calcified gallstones.? Biliary system is non dilated.? There is a hypoattenuating mass extending anteriorly from the pancreatic head measuring 3.9 x 3.7 cm () which appears increased from 3.7 x 2.7 cm previously.? This may represent an exophytic pancreatic mass or enlarged peripancreatic lymph node.? The mass abuts the gastric wall anteriorly and the portal vein posteriorly.? No pancreatic duct dilatation.? Spleen is normal in size and enhancement.? There is masslike enlargement of the left adrenal gland measuring up to 2.9 x 1.7 cm which appears increased in size compared to the prior study. ? Peritoneum and bowel:? Bowel loops demonstrate normal wall thickness and caliber.? No free fluid or air.? There is irregular fat stranding of the omentum anteriorly suspicious for peritoneal carcinomatosis. ? Nodes and vessels:? Multiple enlarged retroperitoneal lymph nodes demonstrate increase in size compared to the prior study.? A merchandiser retail representative left periaortic node on series 5, image 96 measures up to 1.9 cm in short axis compared to 1.7 cm previously.? There is increase in size of multiple right perinephric soft tissue nodules which may represent metastatic implants or lymph nodes.? A merchandiser retail representative nodule measures up to 1.6 x 1.2 cm on series 5, image 136. Aorta and inferior vena cava are normal in size.? ? Miscellaneous:? There is asymmetric enlargement of the left psoas muscle suggestive of an ill-defined mass along its anterior aspect.? The findings appear similar compared to the prior study.? No ventral hernias.? ? Pelvis:? No pathologic free pelvic fluid.? No inguinal hernias or adenopathy.? There is an intramuscular lipoma within the left adductor compartment.? ? Bones:? There is increase in size of a lytic lesion in the right lateral 9th rib with increased associated bony destruction.? Multiple lytic lesions are demonstrated throughout the visualized osseous structures including a merchandiser retail representative permeative lesion involving the majority of the T9 vertebral body.? No definite pathologic vertebral body compression fractures but patient is likely at risk.? There is a right femoral head prosthesis demonstrated. ? ? IMPRESSION:? ? 1. Masslike wall thickening within the urinary bladder which appear progressed compared to the prior study.? The findings are consistent with metastatic disease or a bladder neoplasm such as transitional cell carcinoma. ? 2. Interval progression of extensive metastatic disease including increase in size of bilateral pulmonary nodules, innumerable hepatic mass lesions, retroperitoneal and mesenteric lymphadenopathy, left adrenal mass, perinephric soft tissue nodules, and diffuse lytic osseous lesions. ? 3. Hypoattenuating mass along the pancreatic head anteriorly is suggestive an enlarged peripancreatic lymph node given the absence of associated pancreatic duct dilatation, but the differential also includes an exophytic pancreatic mass. ? 4. Asymmetric enlargement of the left psoas muscle suggestive of an infiltrative mass along its anterior aspect. ? 5. Irregular fat stranding of the omentum anteriorly suggestive of peritoneal carcinomatosis. ? Dictated by: Yash Estrada M.D. on 01/26/2022 at 20:49 ? ? Approved by: Yash Estrada M.D. on 01/26/2022 at 21:16 ? MDM Narrative Medical decision making narrative: Patient presents with largely painless hematuria for the past few days. Vital signs and labs are reassuring, multiple diagnoses considered including metastatic disease, kidney stone infection. Urine does suggest some element of infection, however there is no sepsis. No kidney stone noted on imaging and the thickened bladder wall has increased, hematuria likely combination of these 2 factors. He or she has a visit with the [facility] a plan, antibiotics and to his preferred pharmacy, return precautions discussed and questions answered to his apparent satisfaction Discharge Plan Departure Patient Disposition: Home Clinical Impression: Hematuria, Bladder mass, Acute UTI Instructions: DI for Hematuria Activity Restrictions/Additional Instructions: You have blood in your urine which is likely due to a combination of worsening bladder mass and probable urinary tract infection. I will send an antibiotic to your pharmacy. Please follow up with the [facility] and return to the ED if worse Prescriptions: New cephalexin 500 mg capsule 500 mg PO BID Qty: 10 0RF No Action rosuvastatin 10 mg tablet 10 mg PO DAILY 0RF cyclobenzaprine 10 mg tablet 10 mg PO TID PRN (Reason: muscle spasm) Qty: 14 0RF Referrals: Ruthy Moore MD [Primary Care Provider] - Visit Report Forms: Patient Portal/API
[2022-01-26 19:57] LABS: INR 1.4 (0.9-1.3); Prothrombin Time 15.8 SECONDS (10.1-12.7)
--- NOTE | 2022-01-26 20:03 | DI.CT.S_ITS ---
PROCEDURE: CT ABDOMEN PELVIS WO/W CON INDICATIONS: painless hematuria, sent by [facility] TECHNIQUE: 5 mm thick noncontrast images acquired from the diaphragm to the symphysis pubis. After the administration of intravenous contrast, 5 mm thick images acquired from the diaphragm to the symphysis pubis after a 10-minute delay. 2 mm thick coronal and sagittal reformats were then performed of the kidneys and ureters. For radiation dose reduction, the following was used: automated exposure control, adjustment of mA and/or kV according to patient size. COMPARISON: [facility], CT, CT ABDOMEN PELVIS W CON, 12/25/2021, 16:09. FINDINGS: Image quality: There is metallic streak artifact from patient's right hip prosthesis. Lung bases: There are small bilateral pleural effusions with associated compressive atelectasis. There also new areas of consolidation in the lower lobes. There are bilateral pulmonary nodules redemonstrated within the lung bases. These appear slightly increased in size, with a registered representative nodule medially in the right middle lobe measuring up to 0.6 cm on series 6, image 4 compared to 0.5 cm previously. Medially in the left lower lobe, there is a nodule measuring up to 1.0 cm on series 6, image 14 slightly increased in size from 0.8 cm previously. Heart size is normal. Urinary system: Both kidneys are normal in size, without hydronephrosis or nephrolithiasis. There is mild nonspecific perinephric fat stranding. There is normal bilateral renal enhancement without a discrete renal mass identified. Renal calyces appear normal in morphology when filled with contrast without suspicious filling defects. Opacified portions of both ureters demonstrate normal caliber. There is an intraluminal mass along the left anterior bladder dome measuring approximately 2.3 x 1.5 x 2.5 cm ( and ). There is also masslike lobulated wall thickening along the left lateral and inferior bladder wall. Other solid organs: Innumerable peripherally enhancing mass lesions within the liver demonstrate interval increase in size. A registered representative mass within segment 2 of the left hepatic lobe (45) measures up to 4.3 x 3.8 cm in transverse dimension compared to 3.2 x 2.1 cm previously. A registered representative mass medially in segment 7 of the right hepatic lobe measures up to 4.0 x 3.5 cm (33) compared to 2.6 x 2.0 cm previously. The gallbladder appears within normal limits without calcified gallstones. Biliary system is non dilated. There is a hypoattenuating mass extending anteriorly from the pancreatic head measuring 3.9 x 3.7 cm (/79) which appears increased from 3.7 x 2.7 cm previously. This may represent an exophytic pancreatic mass or enlarged peripancreatic lymph node. The mass abuts the gastric wall anteriorly and the portal vein posteriorly. No pancreatic duct dilatation. Spleen is normal in size and enhancement. There is masslike enlargement of the left adrenal gland measuring up to 2.9 x 1.7 cm which appears increased in size compared to the prior study. Peritoneum and bowel: Bowel loops demonstrate normal wall thickness and caliber. No free fluid or air. There is irregular fat stranding of the omentum anteriorly suspicious for peritoneal carcinomatosis. Nodes and vessels: Multiple enlarged retroperitoneal lymph nodes demonstrate increase in size compared to the prior study. A registered representative left periaortic node on series 5, image 96 measures up to 1.9 cm in short axis compared to 1.7 cm previously. There is increase in size of multiple right perinephric soft tissue nodules which may represent metastatic implants or lymph nodes. A registered representative nodule measures up to 1.6 x 1.2 cm on series 5, image 136. Aorta and inferior vena cava are normal in size. Miscellaneous: There is asymmetric enlargement of the left psoas muscle suggestive of an ill-defined mass along its anterior aspect. The findings appear similar compared to the prior study. No ventral hernias. Pelvis: No pathologic free pelvic fluid. No inguinal hernias or adenopathy. There is an intramuscular lipoma within the left adductor compartment. Bones: There is increase in size of a lytic lesion in the right lateral 9th rib with increased associated bony destruction. Multiple lytic lesions are demonstrated throughout the visualized osseous structures including a registered representative permeative lesion involving the majority of the T9 vertebral body. No definite pathologic vertebral body compression fractures but patient is likely at risk. There is a right femoral head prosthesis demonstrated. IMPRESSION: 1. Masslike wall thickening within the urinary bladder which appear progressed compared to the prior study. The findings are consistent with metastatic disease or a bladder neoplasm such as transitional cell carcinoma. 2. Interval progression of extensive metastatic disease including increase in size of bilateral pulmonary nodules, innumerable hepatic mass lesions, retroperitoneal and mesenteric lymphadenopathy, left adrenal mass, perinephric soft tissue nodules, and diffuse lytic osseous lesions. 3. Hypoattenuating mass along the pancreatic head anteriorly is suggestive an enlarged peripancreatic lymph node given the absence of associated pancreatic duct dilatation, but the differential also includes an exophytic pancreatic mass. 4. Asymmetric enlargement of the left psoas muscle suggestive of an infiltrative mass along its anterior aspect. 5. Irregular fat stranding of the omentum anteriorly suggestive of peritoneal carcinomatosis. Dictated by: Yash Estrada M.D. on 01/26/2022 at 20:49 Approved by: Yash Estrada M.D. on 01/26/2022 at 21:16
[2022-01-26 20:19] LABS: Appearance Urine UA CLOUDY; Bilirubin Urine UA 1+ (NEGATIVE); Color Urine UA ORANGE; Glucose Urine UA TRACE g/dL (Negative); Ketones Urine UA TRACE (NEGATIVE); Leukocyte Esterase Urine UA TRACE (NEGATIVE); Nitrite Urine UA NEGATIVE (Negative); Occult Blood Urine UA 3+ (Negative); Protein Urine UA 2+ (Negative); Specific Gravity Urine UA 1.015 (1.000-1.035); Urobilinogen Urine UA 0.2 E.U./dL (0.2)
[2022-01-26 20:35] LABS: Ictotest Urine Negative (Negative); RBC Urine 30-100/HPF (0-5/HPF); Squamous Epithelial Cell Urine 1-5 /HPF (0-5/HPF); WBC Urine 1-5/HPF (0-5/HPF)
[2022-01-26 20:36] LABS: Bacteria Urine Moderate (10-30); Culture Indicated Urine Specimen Cultured
[2022-01-26 20:41] VITALS: BP 115/58; PULSE 78; RESP 18; O2SAT 94
[2022-01-26] MEDS: cephALEXin 250 MG PREPACK 1 BOTTLE MISC (21:39)
[2022-01-26 21:52] VITALS: BP 118/66; PULSE 79; O2SAT 99
== END 2022-01-26 21:53 | disposition home or self-care (01) ==
PROVIDERS: Emergency Medicine; Emergency Provider Emergency Medicine; PCP Internal Medicine
DX: R31.9 Hematuria, unspecified (principal); N32.89 Other specified disorders of bladder; N39.0 Urinary tract infection, site not specified; R10.84 Generalized abdominal pain
CPT/HCPCS: 74178; 80053; 81001; 83690; 85025; 85610; 87086; 99281; 99283; Q9967

== ENCOUNTER 2022-01-27 09:55 | Emergency (ER) | payer MEDICARE, OTHER, SELFPAY ==
[2022-01-27 10:05] VITALS: BP 114/68; PULSE 103; RESP 16; TEMP 37.7; O2SAT 88; BMI 22.1
--- NOTE | 2022-01-27 10:05 | ED_ITS ---
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 He presents with worsening confusion. Patient was seen yesterday for hematuria reportedly with mildly con fused but is significantly worse today. He seen yesterday had CT imaging with known intra-abdominal neoplasm and was started on cephalexin with 1st dose given last night. Patient knows his name, he is aware he is at a hospital but gets confused about the town, he is not able to give any medical history. At this time he has no complaints other being confused he does recognize that his mental status is different than his normal baseline. Patient denies headache, no neck pain, no neck or back pain, chest pain or shortness of breath, no nausea or vomiting, no GI or urinary symptoms. Related Data Home Medications Medication Instructions Recorded Confirmed rosuvastatin 10 mg tablet 10 mg PO DAILY 11/23/21 11/23/21 Previous Rx's Medication Instructions Recorded cyclobenzaprine 10 mg tablet 10 mg PO TID PRN #14 tab 11/23/21 cephalexin 500 mg capsule 500 mg PO BID #10 cap 01/26/22 Allergies Allergy/AdvReac Type Severity Reaction Status Date / Time Penicillins Allergy Unknown Verified 01/27/22 11:28 Review of Systems Review of Systems ROS Unobtainable: All systems reviewed & are unremarkable except as noted in HPI and below Patient History Medical History Local reaction to bee sting Social History Smoking Status: Never smoker Smoking Status: Never smoker Exam Narrative Exam Narrative: GEN: well nourished, well appearing male, alert and oriented to self only, patient appears to be in mild distress. HEENT: Atraumatic, pupils are equal round reactive to light, extraocular movements are intact, nares are clear, TMs are clear with no fluid, there is no conjunctival pallor. Throat is clear without any exudates, erythema, tonsillar enlargement or uvular deviation, no facial droop. HEART: Regular rate and rhythm without murmur, clicks, rubs. No carotid bruits, pulses are equal in upper and lower extremities LUNGS:Lungs clear to auscultation, no wheezes, rales, crackles, chest moves symmetrically, no tachypnea accessory muscle use ABD:bowel sounds normal, soft, non-tender, no guarding, rebound, rigidity, no masses noted, no hepatosplenomegaly, nondistended. :No CVA tenderness MSCL: Non-tender, no muscle atrophy, muscles strength 5/5 upper and lower extremities, full range of motion NEURO:CN 2-12 intact, sensation normal, reflexes 2/4 upper and lower extremities. finger nose finger test normal, heel waldron test normal, normal speech, no dysarthria. Patient is repetitive. GCS of 14 SKIN: No rash, erythema or other skin changes. Initial Vital Signs Initial Vital Signs: Vital Signs Temperature 99.8 F H 01/27/22 10:05 Pulse Rate 103 H 01/27/22 10:05 Respiratory Rate 16 01/27/22 10:05 Blood Pressure 114/68 01/27/22 10:05 Pulse Oximetry 88 L 01/27/22 10:05 Scores GCS Drexel coma scale eye opening: Spontaneous Lien coma scale verbal response: Confused Drexel coma scale motor response: Obey commands Lien coma scale total score: 14 Course Orders Ordered: ED Orders 01/27/22 10:43 Blood Culture Stat COVID19 -Nasal RAPID/Pre-Proc Stat 01/27/22 13:20 Ammonia (NH3) Stat Sodium Chloride (Normal Saline 0.9%) 1,000 mls @ 150 mls/hr IV CONT ADWOA Last Infusion: 01/27/22 14:07 Dose: 0 mls/hr Documented by: Infusion: 01/27/22 13:17 Dose: 999 mls/hr Documented by: Admin: 01/27/22 10:36 Dose: 150 mls/hr Documented by: SISI Levofloxacin (Levaquin) 750 mg in 150 mls @ 100 mls/hr IV DAILY ADWOA Morphine Sulfate (Morphine 4 Mg/Ml Inj) 4 mg IV Q4H PRN PRN Reason: pain Last Admin: 01/27/22 19:13 Dose: 4 mg Documented by: Ondansetron HCl (Ondansetron 4 Mg/2 Ml Inj) 4 mg IV Q6HR PRN PRN Reason: Nausea And Vomiting Polyethylene Glycol (Polyethylene Glycol 3350 17 Gm Powd.Pack) 17 gm PO DAILY ADWOA Discontinued Medications Acetaminophen (Acetaminophen 325 Mg Tablet) 975 mg PO NOW ONE Stop: 01/27/22 16:32 Last Admin: 01/27/22 17:24 Dose: 975 mg Documented by: MONIQUE Atorvastatin Calcium (Atorvastatin 20 Mg Tablet) 20 mg PO NOW ONE Stop: 01/27/22 19:06 Dexamethasone (Dexamethasone 10 Mg/Ml Vial) 10 mg IV NOW ONE Stop: 01/27/22 12:12 Last Admin: 01/27/22 12:52 Dose: 10 mg Documented by: SISI Piperacillin Sod/Tazobactam (Sod 4.5 gm/ Sodium Chloride) 100 mls @ 200 mls/hr IV NOW ONE Stop: 01/27/22 10:57 Last Infusion: 01/27/22 11:26 Dose: 0 mls/hr Documented by: Infusion: 01/27/22 11:16 Dose: 0 mls/hr Documented by: Admin: 01/27/22 11:15 Dose: 200 mls/hr Documented by: SISI Levofloxacin (Levaquin) 750 mg in 150 mls @ 100 mls/hr IV NOW ONE Stop: 01/27/22 12:53 Last Infusion: 01/27/22 13:18 Dose: 0 mls/hr Documented by: Admin: 01/27/22 11:29 Dose: 100 mls/hr Documented by: SISI Sodium Chloride (Normal Saline 0.9%) 1,000 mls @ 1,000 mls/hr IV BOLUS ONE Stop: 01/27/22 13:11 Last Infusion: 01/27/22 15:36 Dose: 0 mls/hr Documented by: Admin: 01/27/22 14:09 Dose: 1,000 mls/hr Documented by: SISI Morphine Sulfate (Morphine 4 Mg/Ml Inj) 4 mg IV NOW ONE Stop: 01/27/22 11:25 Last Admin: 01/27/22 11:29 Dose: 4 mg Documented by: SISI Oxycodone HCl (Oxycodone Ir 5 Mg Tablet) 5 mg PO NOW ONE Stop: 01/27/22 17:25 Last Admin: 01/27/22 17:28 Dose: 5 mg Documented by: MONIQUE Oxycodone HCl (Oxycodone Ir 5 Mg Tablet) 5 mg PO NOW ONE Stop: 01/27/22 18:44 Last Admin: 01/27/22 18:46 Dose: 5 mg Documented by: VIOLA Reevaluation(s) Reevaluation #1: Patient is still confused but pleasantly so. Reviewed his findings with him and life partner at bedside. Time: 12:06 Reevaluation #2: Patient family updated that I put call into his oncology team but had not spoke with them yet. Reevaluation #3: Spoke with his DPSHEBA Ravi. Discussed todays findings. Recommendations and cur rent treatment plan including antibiotics and steroids. Patient accepted at [facility] but could potentially be days. If patient mentation resolves then [facility] may defer transfer and have patient admitted her if appropriate. Patient is still uncomfortable after regular home pain medications and additional dose ordered IV. Time: 19:11 Consultations Consultation #1: Dr. Pantoja, feels patient best benefits from transfer with mentation changes and brain metastases. Consultation #2: Dr. Molina, [facility]ology [facility]. Continue dexamethasone 4mg q day. Continue antibiotics. Patient transfer may be deferred if his mentation improves and he is doing significantly better. But at this time plan for transfer when bed is available which could potentially be several days. Consultation #3: Dr. Emmett Blackwell, oncology from [facility]. Reviewed findings. Agreed with current plan. Patient is candidate for new therapy and when he is improving they may be able to initiate. He is happy to speak with the provider if any questions at [phone] or his nurse at [phone] ext. 4. Vital Signs Vital signs: Vital Signs - 8 hr 01/27/22 12:00 Pulse Rate 93 H Respiratory Rate 19 Blood Pressure 104/64 Pulse Oximetry 97 MDM - Altered Mental Status Lab Data Result diagrams: 01/27/22 10:00 01/27/22 10:00 Labs: Lab Results 01/27/22 01/27/22 01/27/22 Range/Units 10:00 10:00 10:00 WBC 10.0 (4.5-11.0) X10^3/uL RBC 4.60 (4.5-5.9) X10^6/uL Hgb 12.8 L (13.5-17.5) g/dL Hct 38.0 L (41-53) % MCV 82.7 (80-100) fL MCH 27.8 (26-34) PG MCHC 33.6 (30-36) % RDW 14.0 (11.6-14.8) % Plt Count 377 (150-400) X10^3/uL Neut % (Auto) 84.9 H (50-75) % Lymph % (Auto) 12.9 L (25-40) % Doddridge % (Auto) 1.4 L (3-14) % Eos % (Auto) 0.8 L (2-4) % Baso % (Auto) 0.0 (0-2) % Neut # (Auto) 8500 H (2155-6688) /uL Lymph # (Auto) 1300 (8320-0840) /uL Doddridge # (Auto) 100 (0-900) /uL Eos # (Auto) 100 (0-450) /uL Baso # (Auto) 0 (0-100) /uL PT 15.7 H (10.1-12.7) SECONDS INR 1.4 H (0.9-1.3) APTT 31 (26.4-36.2) SECONDS Sodium 125 L (137-145) mmol/L Potassium 4.7 (3.4-5.1) mmol/L Chloride 87 L (98-107) mmol/L Carbon Dioxide 33 H (22-32) mmol/L BUN 17 (9-20) mg/dL Creatinine 0.72 (0.66-1.25) mg/dL Estimated GFR > 60 (>60) mL/min BUN/Creatinine Ratio 23.6 H (6-22) Glucose 96 (80-110) mg/dL Lactate (0.7-2.1) mmol/L Calcium 8.3 L (8.4-10.2) mg/dL Total Bilirubin 1.0 (0.2-1.3) mg/dL AST 113 H (17-59) IU/L ALT 39 (<50) IU/L Alkaline Phosphatase 529 H (38-126) U/L Ammonia (9-30) umol/L Total Creatine Kinase 88 (55-170) U/L CK-MB (CK-2) TNP CK-MB (CK-2) Rel Index TNP Troponin I < 0.012 (0.01-0.034) ng/mL NT-Pro-B Natriuret Pep 1110 H (<125) pg/mL Total Protein 6.0 L (6.3-8.2) g/dL Albumin 3.1 L (3.5-5.0) g/dL Globulin 2.9 (1.7-4.1) g/dL Albumin/Globulin Ratio 1.1 (1.0-2.8) Procalcitonin 3.78 H (<0.5) ng/mL TSH (0.47-4.68) uIU/mL Prolactin 14.2 (3.7-17.9) ng/mL Salicylates < 1.0 (<20) mg/dL Acetaminophen < 10 (10-30) ug/mL Ethyl Alcohol < 10 ( - 10) mg/dL SARS-CoV-2 (PCR) (Negative) 01/27/22 01/27/22 01/27/22 Range/Units 10:00 10:00 10:00 WBC (4.5-11.0) X10^3/uL RBC (4.5-5.9) X10^6/uL Hgb (13.5-17.5) g/dL Hct (41-53) % MCV (80-100) fL MCH (26-34) PG MCHC (30-36) % RDW (11.6-14.8) % Plt Count (150-400) X10^3/uL Neut % (Auto) (50-75) % Lymph % (Auto) (25-40) % Doddridge % (Auto) (3-14) % Eos % (Auto) (2-4) % Baso % (Auto) (0-2) % Neut # (Auto) (6055-6407) /uL Lymph # (Auto) (6644-2056) /uL Doddridge # (Auto) (0-900) /uL Eos # (Auto) (0-450) /uL Baso # (Auto) (0-100) /uL PT (10.1-12.7) SECONDS INR (0.9-1.3) APTT (26.4-36.2) SECONDS Sodium (137-145) mmol/L Potassium (3.4-5.1) mmol/L Chloride (98-107) mmol/L Carbon Dioxide (22-32) mmol/L BUN (9-20) mg/dL Creatinine (0.66-1.25) mg/dL Estimated GFR (>60) mL/min BUN/Creatinine Ratio (6-22) Glucose (80-110) mg/dL Lactate 2.0 (0.7-2.1) mmol/L Calcium (8.4-10.2) mg/dL Total Bilirubin (0.2-1.3) mg/dL AST (17-59) IU/L ALT (<50) IU/L Alkaline Phosphatase (38-126) U/L Ammonia (9-30) umol/L Total Creatine Kinase (55-170) U/L CK-MB (CK-2) CK-MB (CK-2) Rel Index Troponin I (0.01-0.034) ng/mL NT-Pro-B Natriuret Pep Cancelled (<125) pg/mL Total Protein (6.3-8.2) g/dL Albumin (3.5-5.0) g/dL Globulin (1.7-4.1) g/dL Albumin/Globulin Ratio (1.0-2.8) Procalcitonin (<0.5) ng/mL TSH 3.02 (0.47-4.68) uIU/mL Prolactin (3.7-17.9) ng/mL Salicylates (<20) mg/dL Acetaminophen (10-30) ug/mL Ethyl Alcohol ( - 10) mg/dL SARS-CoV-2 (PCR) (Negative) 01/27/22 01/27/22 Range/Units 10:43 13:20 WBC (4.5-11.0) X10^3/uL RBC (4.5-5.9) X10^6/uL Hgb (13.5-17.5) g/dL Hct (41-53) % MCV (80-100) fL MCH (26-34) PG MCHC (30-36) % RDW (11.6-14.8) % Plt Count (150-400) X10^3/uL Neut % (Auto) (50-75) % Lymph % (Auto) (25-40) % Doddridge % (Auto) (3-14) % Eos % (Auto) (2-4) % Baso % (Auto) (0-2) % Neut # (Auto) (5697-7313) /uL Lymph # (Auto) (6227-8229) /uL Doddridge # (Auto) (0-900) /uL Eos # (Auto) (0-450) /uL Baso # (Auto) (0-100) /uL PT (10.1-12.7) SECONDS INR (0.9-1.3) APTT (26.4-36.2) SECONDS Sodium (137-145) mmol/L Potassium (3.4-5.1) mmol/L Chloride (98-107) mmol/L Carbon Dioxide (22-32) mmol/L BUN (9-20) mg/dL Creatinine (0.66-1.25) mg/dL Estimated GFR (>60) mL/min BUN/Creatinine Ratio (6-22) Glucose (80-110) mg/dL Lactate (0.7-2.1) mmol/L Calcium (8.4-10.2) mg/dL Total Bilirubin (0.2-1.3) mg/dL AST (17-59) IU/L ALT (<50) IU/L Alkaline Phosphatase (38-126) U/L Ammonia < 9 L (9-30) umol/L Total Creatine Kinase (55-170) U/L CK-MB (CK-2) CK-MB (CK-2) Rel Index Troponin I (0.01-0.034) ng/mL NT-Pro-B Natriuret Pep (<125) pg/mL Total Protein (6.3-8.2) g/dL Albumin (3.5-5.0) g/dL Globulin (1.7-4.1) g/dL Albumin/Globulin Ratio (1.0-2.8) Procalcitonin (<0.5) ng/mL TSH (0.47-4.68) uIU/mL Prolactin (3.7-17.9) ng/mL Salicylates (<20) mg/dL Acetaminophen (10-30) ug/mL Ethyl Alcohol ( - 10) mg/dL SARS-CoV-2 (PCR) Negative (Negative) Imaging Data CT scan - chest: Radiologist's Impression: Launch?[address] [address] [address] Scan Report Signed Patient: Gisel Alcantara MR#: [id number] : 1945 Acct:[id number] Age/Sex: 76 / F Date of Service: 01/27/22 Loc: ED Accession Number: [id number] ?? Procedure: CT abdomen pelvis w con Ordering Provider: Ada Gutierrez D.O. PROCEDURE:? CT ABDOMEN PELVIS W CON ? INDICATIONS:? RUQ pain, non-tender, recent surgery. ? TECHNIQUE:? After the administration of intravenous contrast, axial sections acquired from the lung bases to the pubic symphysis.? Coronal and sagittal reformats were performed.? For radiation dose reduction, the following was used:? automated exposure control, adjustment of mA and/or kV according to patient size.? ? COMPARISON:? None. ? FINDINGS:? Image quality:? Excellent.? ? Lung bases:? Mild ground-glass density within the right lower lobe posteriorly.? Filling defect within the segmental and subsegmental branch of the right lower lobe pulmonary artery posteriorly. Heart:? No significant findings. ? ABDOMEN: Liver:? Unremarkable.? ? Gallbladder:? Unremarkable.? ? Biliary ducts:? Unremarkable.? ? Pancreas:? Unremarkable.? ? Spleen:? Unremarkable.? ? Adrenal Glands:? Unremarkable.? ? Kidneys and Ureters:? Unremarkable.? ? ? Stomach and Bowel:? Stomach, small bowel loops, and colon are unremarkable.? Appendix is not seen.? No evidence of appendicitis. Peritoneum:? No abnormal intraperitoneal fluid.? No free air.? ? Ventral Wall: ? There is a fat containing umbilical hernia measuring roughly 14 mm short axis. Abdominal Nodes:? No retroperitoneal or mesenteric adenopathy by size criteria.? Vessels:? Aorta and inferior vena cava are normal in size.? ? PELVIS: Pelvic Organs:? Unremarkable.? ? Bladder:? Unremarkable.? ? Pelvic Nodes: No enlarged lymph nodes.? Miscellaneous: No hernias are seen. ? ? ? Bones:? Unremarkable.? IMPRESSION:? 1. Right lower lobe pulmonary embolus associated with mild early infarction within the right lower lobe. 2. Appendix not seen.? No evidence of appendicitis. 3. Small fat containing umbilical hernia.? ? ? Dictated by: Caroline Evans M.D. on 01/27/2022 at 11:05 ? ? Approved by: Caroline Evans M.D. on 01/27/2022 at 11:07?? CT scan - head: Radiologist's Impression: Launch?Image [address] [address] [address] Scan Report Signed Patient: Jabari Torre MR#: [id number] : 1945 Acct:[id number] Age/Sex: 76 / M Date of Service: 01/27/22 Loc: ED Accession Number: [id number] ?? Procedure: CT head/brain wo/w con Ordering Provider: Ada Gutierrez D.O. PROCEDURE:? CT HEAD/BRAIN WO/W CON ? INDICATIONS:? altered mental status, known CA, ? prior mets on 01/20, low O2 ? TECHNIQUE:? 4.5 mm thick angled axial sections acquired from the foramen magnum to the vertex both before and after the administration of intravenous contrast, with coronal and sagittal reformats.? For radiation dose reduction, the following was used:? automated exposure control, adjustment of mA and/or kV according to patient size.? ? COMPARISON:? Outside Facility, , CT HEAD WITH CONTRAST, 01/08/2022, 7:11.? [facility], MR, MR HEAD/BRAIN WO/W CON, 01/20/2022, 11:30. ? FINDINGS:? Image quality:? Excellent.? ? CSF spaces:? Basal cisterns are patent.? No extra-axial fluid collections.? Ventricles are symmetric in size and shape.? ? Brain:? There are multiple small hyperdense, subtly enhancing nodules bilaterally involving the left frontal parietal lobe, left thalamus, left internal capsule, right parietal lobe and occipital lobe, consistent with metastases.? There is mild vasogenic edema in thalamus.? The metastatic intracranial lesions are more conspicuous w hen compared to the last CT dated 01/08/2022.? No mass effects or midline shift.? There is moderate cerebral volume loss for age.? There is mild periventricular white matter chronic small vessel ischemic change.? There is intracranial internal carotid artery atherosclerosis.? ? Skull and face:? Calvarium and visualized facial bones appear intact, without suspicious lesions.? ? Sinuses:? Visualized sinuses and mastoids are clear.? ? IMPRESSION:? ? 1. Multiple small foci of intracranial metastases.? No significant mass effect or midline shift.? ? ? Dictated by: Vanessa Victor M.D. on 01/27/2022 at 10:47 ? ? Approved by: Vanessa Victor M.D. on 01/27/2022 at 11:02?? ECG Data Attestation: I personally reviewed and interpreted this ECG as follows: Prior ECG tracings: not available for review Interpretation: Sinus tachycardia rate of 101 KS 180 QRS of 132 QTC 477. Left bundle-branch block. No priors for comparison. MDM Narrative Medical decision making narrative: This is a 76-year-old male with presentation for acute alteration in mental status. Patient has known metastatic disease with brain metastases imaged January 20 on MRI, patient was seen overnight for possible UTI started on antibiotics. On arrival he is noted to be slightly hypoxic at 88% on room air which is also new. Patient does not have any lateralizing deficits he has confusion and is somewhat repetitive but pleasant. CT shows persistent brain metastases, some mild vasogenic edema at 1 metastases E at the thalamus, he was given a dose of dexamethasone, patient had CT of chest which shows bilateral pneumonia but no PE and was started on Levaquin to cover for urine as well as respiratory infection. He is also hyponatremic and after discussion with his oncologist this is an acute change for him, renal function is does not show any major changes today. Patient does not appear to be septic, he has had heart rate with 0 190s but has not been hypotensive, has been afebrile with as adult normal white blood cell count but does have a leftward shift. Patient was given some gentle fluids, his home pain medications which were inadequate and additional pain medicine in the department. Case was discussed with [facility] oncology both. Patient is accepted for transfer although there may be significant delay secondary to lack of beds regionally. Accepting physician does note if his mentation clears they may defer transfer at that point. They did agree with plan for dexamethasone recommend 4 mg daily, continuing antibiotics and his oncologist Dr. Blackwell through [facility] notes he is a candidate for an additional treatment for his metastatic cancer and is happy to talk with us at any time. Patient signed out to Dr. Luis brown while awaiting potential transfer. Discharge Plan Departure Clinical Impression: Acute alteration in mental status, Hyponatremia, Brain metastasis, Pneumonia, Acute respiratory failure with hypoxia Prescriptions: No Action rosuvastatin 10 mg tablet 10 mg PO DAILY 0RF cyclobenzaprine 10 mg tablet 10 mg PO TID PRN (Reason: muscle spasm) Qty: 14 0RF cephalexin 500 mg capsule 500 mg PO BID Qty: 10 0RF Referrals: Ruthy Moore MD [Primary Care Provider] -
--- NOTE | 2022-01-27 10:08 | DI.CT.S_ITS ---
PROCEDURE: CT HEAD/BRAIN WO/W CON INDICATIONS: altered mental status, known CA, ? prior mets on 01/20, low O2 TECHNIQUE: 4.5 mm thick angled axial sections acquired from the foramen magnum to the vertex both before and after the administration of intravenous contrast, with coronal and sagittal reformats. For radiation dose reduction, the following was used: automated exposure control, adjustment of mA and/or kV according to patient size. COMPARISON: Outside Facility, RG, CT HEAD WITH CONTRAST, 01/08/2022, 7:11. [facility], , MR HEAD/BRAIN WO/W CON, 01/20/2022, 11:30. FINDINGS: Image quality: Excellent. CSF spaces: Basal cisterns are patent. No extra-axial fluid collections. Ventricles are symmetric in size and shape. Brain: There are multiple small hyperdense, subtly enhancing nodules bilaterally involving the left frontal parietal lobe, left thalamus, left internal capsule, right parietal lobe and occipital lobe, consistent with metastases. There is mild vasogenic edema in thalamus. The metastatic intracranial lesions are more conspicuous when compared to the last CT dated 01/08/2022. No mass effects or midline shift. There is moderate cerebral volume loss for age. There is mild periventricular white matter chronic small vessel ischemic change. There is intracranial internal carotid artery atherosclerosis. Skull and face: Calvarium and visualized facial bones appear intact, without suspicious lesions. Sinuses: Visualized sinuses and mastoids are clear. IMPRESSION: 1. Multiple small foci of intracranial metastases. No significant mass effect or midline shift. Dictated by: Vanessa Victor M.D. on 01/27/2022 at 10:47 Approved by: Vanessa Victor M.D. on 01/27/2022 at 11:02
--- NOTE | 2022-01-27 10:08 | DI.CT.S_ITS ---
PROCEDURE: CT ANGIO CHEST PE PROTOCOL INDICATIONS: low O2, confusion. TECHNIQUE: After the administration of intravenous contrast, 2 mm thick sections acquired from the pulmonary apices to the posterior costophrenic angles. 3-dimensional maximum intensity projection (MIP) coronal and sagittal reformats were then acquired through the thorax. For radiation dose reduction, the following was used: automated exposure control, adjustment of mA and/or kV according to patient size. COMPARISON: [facility], CT, CT CHEST [facility], 01/20/2022, 12:00. FINDINGS: Image quality: Excellent. Pulmonary arteries: Pulmonary arteries are normal in size, and demonstrate no intraluminal filling defects to suggest central pulmonary embolism. Lungs and pleura: Small bilateral pleural effusions are present. No pneumothorax. There is moderate right and mild left bibasilar airspace opacities. Bilateral pulmonary nodules are present, as before, largest of which are in the left upper lobe posterolaterally measuring 15 mm diameter and within the right upper lobe anteriorly measuring 10 mm diameter. Central and peripheral airways are patent. Mediastinum: Heart size is normal, without pericardial effusion. Calcification of the coronary vasculature is present. No mediastinal or hilar adenopathy. Thoracic aorta is normal in caliber and enhancement. Esophagus is normal in caliber, without hiatal hernia. Bones and chest wall: Multiple ill-defined lucencies within the visualized axial skeleton and proximal appendicular skeleton.. Ribs and thoracic spine appear intact throughout. Thyroid gland is within normal limits. No axillary or supraclavicular adenopathy. Abdomen: Visualized portions of the upper abdomen demonstrate a small amount of ascites, as well as multiple ill-defined hepatic lesions.. IMPRESSION: 1. No pulmonary embolus. 2. Bibasilar pneumonia with small bilateral pleural effusions. 3. Coronary artery disease. 4. Multiple hepatic metastases. Small amount of ascites. 5. Multiple bony metastases, as before. Dictated by: Caroline Evans M.D. on 01/27/2022 at 10:45 Approved by: Caroline Evans M.D. on 01/27/2022 at 10:50
[2022-01-27 10:27] LABS: Add Manual Diff / Slide Review NO; Basophils Absolute Auto 0 /uL (0-100); Eosinophils Absolute Auto 100 /uL (0-450); Eosinophils Percent Auto 0.8 % (2-4); Hemoglobin 12.8 g/dL (13.5-17.5); Lymphocytes Absolute Auto 1300 /uL (1100-4500); Lymphocytes Percent Auto 12.9 % (25-40); Mean Corpuscular HGB Conc 33.6 % (30-36); Mean Corpuscular Hemoglobin 27.8 PG (26-34); Mean Corpuscular Volume 82.7 fL (80-100); Monocytes Absolute Auto 100 /uL (0-900); Monocytes Percent Auto 1.4 % (3-14); Neutrophils Absolute Auto 8500 /uL (1500-7000); Neutrophils Percent Auto 84.9 % (50-75); Platelet Count 377 X10^3/uL (150-400)
[2022-01-27 10:28] LABS: INR 1.4 (0.9-1.3); Prothrombin Time 15.7 SECONDS (10.1-12.7)
[2022-01-27 10:31] LABS: PTT Partial Thromboplastin Tim 31 SECONDS (26.4-36.2)
[2022-01-27 10:35] LABS: Acetaminophen < 10 ug/mL (10-30); Alanine Aminotransferase 39 IU/L (<50); Albumin 3.1 g/dL (3.5-5.0); Albumin Globulin Ratio 1.1 (1.0-2.8); Alkaline Phosphatase 529 U/L (38-126); Aspartate Aminotransferase 113 IU/L (17-59); BUN Creatinine Ratio 23.6 (6-22); Blood Urea Nitrogen 17 mg/dL (9-20); Calcium 8.3 mg/dL (8.4-10.2); Carbon Dioxide 33 mmol/L (22-32); Chloride 87 mmol/L (98-107); Creatine Kinase 88 U/L (55-170); Estimated Glomerular Filt Rate > 60 mL/min (>60); Ethanol (ETOH) < 10 mg/dL; Globulin 2.9 g/dL (1.7-4.1); Glucose 96 mg/dL (80-110); HEMOLYSIS < 15 (0-50); Potassium 4.7 mmol/L (3.4-5.1); Salicylate < 1.0 mg/dL (<20); Sodium 125 mmol/L (137-145)
[2022-01-27] MEDS: SODIUM CHLORIDE 0.9% 1,000 ML 150 ML IV (10:36)
[2022-01-27 10:47] LABS: NT-proBNP (BNP-Adult 18+) 1110 pg/mL (<125); Troponin I < 0.012 ng/mL (0.01-0.034)
[2022-01-27 10:48] VITALS: BP 115/60; PULSE 96; RESP 16; O2SAT 98
[2022-01-27 10:51] LABS: Procalcitonin 3.78 ng/mL (<0.5); Prolactin 14.2 ng/mL (3.7-17.9)
--- NOTE | 2022-01-27 10:51 | PC.NURSE ---
Pt was seen by Dr Bustamante in ED yesterday. DX with hematuria, UTI, and bladder mass. h/o melanoma and being treated with chemotherapy at [facility] with recent infusion on . Pt presents today via EMS with increased confusion and tachycardia 103-113. temp 99.8 oral. c/o L hip pain. lives at home alone and unknown if fall occured. no cervical spine tenderness. No thinners.
[2022-01-27 11:15] LABS: Thyroid Stimulating Hormone 3.02 uIU/mL (0.47-4.68)
[2022-01-27] MEDS: PIPERACILLIN/TAZO 4.5 GM in SODIUM CHLORIDE 0.9% 100 ML IV (11:15)
--- NOTE | 2022-01-27 11:21 | PC.NURSE ---
Allyson scanned and hung. 0ml infused for noted PCN allergy. Dr Gutierrez made aware. awaiting new orders.
--- NOTE | 2022-01-27 11:26 | PC.NURSE ---
Pt c/o abd pain. Dr Gutierrez made aware. orders for morphine per OCT. Noted that OCT states Zosyn infused however 0 mL given and 100 mL wasted and new order for Levaquin.
[2022-01-27] MEDS: levoFLOXacin 750 MG/150 ML PIGGYBACK 100 MG IV (11:29)
[2022-01-27] MEDS: MORPHINE 4 MG/ML INJ IV ×2 (11:29→19:13)
[2022-01-27 11:30] LABS: COVID19 -Nasal RAPID Negative (Negative)
[2022-01-27 11:34] VITALS: BP 118/63; PULSE 93; RESP 20; O2SAT 96
[2022-01-27 12:00] VITALS: BP 104/64; PULSE 93; RESP 19; O2SAT 97
--- NOTE | 2022-01-27 12:32 | PC.NURSE ---
RN from [facility] called requesting we contact Dr Emmett Blackwell, Pt's Oncologist for an update. Dr Dela Cruz phone number given to Dr Gutierrez. If unable to reach Dr Blackwell, advised to contact [facility] RN at [phone] option #4.
[2022-01-27] MEDS: DEXAMETHASONE 10 MG/ML VIAL IV (12:52)
[2022-01-27 13:40] LABS: Ammonia (NH3) < 9 umol/L (9-30)
[2022-01-27] MEDS: SODIUM CHLORIDE 0.9% 1,000 ML 1000 ML IV (14:09)
[2022-01-27 16:00] VITALS: BP 123/57; PULSE 96; RESP 22; O2SAT 94
[2022-01-27] MEDS: ACETAMINOPHEN 325 MG TABLET 975 MG PO (17:24)
[2022-01-27] MEDS: OXYCODONE IR 5 MG TABLET PO ×2 (17:28→18:46)
[2022-01-27 20:00] VITALS: BP 111/61; PULSE 84; RESP 18; O2SAT 97
[2022-01-27] MEDS: ATORVASTATIN 20 MG TABLET PO (20:15)
[2022-01-27] MEDS: LORazepam 0.5 MG TABLET 1 MG PO (22:56)
[2022-01-28] VITALS (30 sets, daily range): BP systolic 104–117; BP diastolic 61–74; PULSE 77–123; RESP 10–25; TEMP 36.5; O2SAT 92–97
[2022-01-28 07:36] LABS: Add Manual Diff / Slide Review NO; Basophils Absolute Auto 0 /uL (0-100); Eosinophils Absolute Auto 0 /uL (0-450); Eosinophils Percent Auto 0.3 % (2-4); Hematocrit 39.5 % (41-53); Hemoglobin 12.9 g/dL (13.5-17.5); Lymphocytes Absolute Auto 1800 /uL (1100-4500); Lymphocytes Percent Auto 18.1 % (25-40); Mean Corpuscular HGB Conc 32.7 % (30-36); Mean Corpuscular Hemoglobin 27.4 PG (26-34); Mean Corpuscular Volume 83.9 fL (80-100); Monocytes Absolute Auto 300 /uL (0-900); Monocytes Percent Auto 3.3 % (3-14); Neutrophils Absolute Auto 7800 /uL (1500-7000); Neutrophils Percent Auto 78.3 % (50-75); Platelet Count 334 X10^3/uL (150-400); Red Blood Cell Count 4.71 X10^6/uL (4.5-5.9); Red Cell Distribution Width 13.9 % (11.6-14.8)
[2022-01-28 08:03] LABS: Alanine Aminotransferase 31 IU/L (<50); Albumin 2.6 g/dL (3.5-5.0); Alkaline Phosphatase 354 U/L (38-126); Aspartate Aminotransferase 77 IU/L (17-59); Bilirubin Total 0.6 mg/dL (0.2-1.3); Blood Urea Nitrogen 18 mg/dL (9-20); Calcium 7.9 mg/dL (8.4-10.2); Carbon Dioxide 32 mmol/L (22-32); Chloride 95 mmol/L (98-107); Estimated Glomerular Filt Rate > 60 mL/min (>60); Globulin 2.6 g/dL (1.7-4.1); Glucose 126 mg/dL (80-110); HEMOLYSIS 16 (0-50); Potassium 4.9 mmol/L (3.4-5.1); Sodium 128 mmol/L (137-145); Total Protein 5.2 g/dL (6.3-8.2)
[2022-01-28] MEDS: polyethylene glycoL 3350 17 GM POWD.PACK PO (08:49)
[2022-01-28] MEDS: levoFLOXacin 750 MG/150 ML PIGGYBACK 100 MG IV (08:49)
[2022-01-28] MEDS: MORPHINE 4 MG/ML INJ IV ×2 (11:16→15:32)
--- NOTE | 2022-01-28 14:41 | PC.NURSE ---
Pt requesting pain medication r/t pain, offered Oxycodone per order and pt declines, states it does not help his pain and only the morphine touches his pain. Too soon to administer dose, pt educated, pt states he will wait. Updated pt and on wait for beds, repeatedly asking when he will have a bed, educated and re-educated on update from regarding no beds since last update.
--- NOTE | 2022-01-28 16:01 | PC.NURSE ---
Pt accepted at and call placed to inquire about bed availability. No beds will be available today. Pt's mentation has rapidly improved to baseline. Pt is not requiring O2 at this time and appears sodium is improving. pain is being controlled and multiple calls placed to Dr Blackwell (ONC) and Dr Blackwell's RN, Miracle. Plan was devised that pt's brother will miner pick his new cancer medication from [facility] and bring it to pt to start therapy and then pt will be able to follow up with oncology on an outpt basis. Ambulation trial performed by this RN wit Dr Muñoz at [facility] and pt passed using a walker. Pt will be sent home with a walker for safety. Update given to JIN Umana. Pt will be sent home with ABX, meds for pain and anxiety. All parties agreeable to plan.
--- NOTE | 2022-01-28 17:11 | PC.NURSE ---
Visitor with pt verbalizing understanding to discharge instructions, at time of discharge states He (pt) doesn't understand his discharge instructions and I won't sign for him. Pt taught back some of discharge instructions but leading on tangents for other parts, Dr. Muñoz at bedside explaining r/t metastatis to the brain. Visitor now stating she is unable to take pt home, visitor hand RN her phone to talk to pt POA/long time friend Trav, Trav verbalizes understanding of discharge instruction and agrees to plan. Trav spoke to visitor on speaker phone and Trav states she will drive pt home, [place] ferry and E[place] in 15 minutes.
== END 2022-01-28 17:35 | disposition home or self-care (01) ==
PROVIDERS: Emergency Medicine; Emergency Provider Emergency Medicine; PCP Internal Medicine
DX: R41.82 Altered mental status, unspecified (principal); E87.1 Hypo-osmolality and hyponatremia; J18.9 Pneumonia, unspecified organism; J96.01 Acute respiratory failure with hypoxia; C79.31 Secondary malignant neoplasm of brain; C76.2 Malignant neoplasm of abdomen; R31.9 Hematuria, unspecified; R10.11 Right upper quadrant pain; Z20.822 Contact with and (suspected) exposure to COVID-19
CPT/HCPCS: 36415; 70470; 71275; 80053; 80320; 80329; 82140; 82550; 83605; 83880; 84145; 84146; 84443; 84484; 85025; 85610; 85730; 87040; 87635; 93005; 93010; 96361; 96365; 96366; 96375; 96376; 99285; C9803; G0480; J1100; J1956; J2270; J2543

== ENCOUNTER → 2022-02-11 13:28 | Outpatient (CLI) | payer MEDICARE, OTHER, SELFPAY ==
[2022-02-11 14:19] LABS: Add Manual Diff / Slide Review NO; Basophils Absolute Auto 100 /uL (0-100); Basophils Percent Auto 0.4 % (0-2); Eosinophils Absolute Auto 100 /uL (0-450); Eosinophils Percent Auto 0.5 % (2-4); Hematocrit 36.5 % (41-53); Lymphocytes Absolute Auto 3900 /uL (1100-4500); Lymphocytes Percent Auto 27.4 % (25-40); Mean Corpuscular HGB Conc 32.9 % (30-36); Mean Corpuscular Hemoglobin 27.1 PG (26-34); Mean Corpuscular Volume 82.5 fL (80-100); Monocytes Absolute Auto 500 /uL (0-900); Monocytes Percent Auto 3.5 % (3-14); Neutrophils Absolute Auto 9800 /uL (1500-7000); Neutrophils Percent Auto 68.2 % (50-75); Platelet Count 479 X10^3/uL (150-400); Red Blood Cell Count 4.42 X10^6/uL (4.5-5.9); Red Cell Distribution Width 15.1 % (11.6-14.8); White Blood Cell Count 14.3 X10^3/uL (4.5-11.0)
[2022-02-11 14:32] LABS: HEMOLYSIS < 15 (0-50)
[2022-02-11 14:41] LABS: Alanine Aminotransferase 19 IU/L (<50); Alkaline Phosphatase 241 U/L (38-126); Aspartate Aminotransferase 43 IU/L (17-59); BUN Creatinine Ratio 22.4 (6-22); Bilirubin Total 0.5 mg/dL (0.2-1.3); Bilirubin Unconjugated 0.3 mg/dL (0.0-1.1); Blood Urea Nitrogen 17 mg/dL (9-20); Calcium 7.9 mg/dL (8.4-10.2); Carbon Dioxide 25 mmol/L (22-32); Chloride 100 mmol/L (98-107); Estimated Glomerular Filt Rate > 60 mL/min (>60); Globulin 2.9 g/dL (1.7-4.1); Glucose 163 mg/dL (80-110); Lactate Dehydrogenase 752 U/L (313-618); Potassium 3.9 mmol/L (3.4-5.1); Sodium 131 mmol/L (137-145); Total Protein 5.9 g/dL (6.3-8.2)
[2022-02-12 03:33] LABS: Free T4, Direct Thyroxine 0.55 ng/dL (0.78-2.19)
[2022-02-12 03:46] LABS: Thyroid Stimulating Hormone 3.26 uIU/mL (0.47-4.68)
[2022-02-12 05:18] LABS: Cortisol Random 10.7 ug/dL
== END ==
PROVIDERS: PCP Internal Medicine
DX: C78.7 Secondary malignant neoplasm of liver and intrahepatic bile duct (principal); I10 Essential (primary) hypertension
CPT/HCPCS: 36415; 80048; 80076; 82533; 83615; 84439; 84443; 85025

== ENCOUNTER → 2022-02-17 09:58 | Outpatient (CLI) | payer MEDICARE, OTHER, SELFPAY ==
--- NOTE | 2022-02-17 | DI.CT.S_ITS ---
PROCEDURE: CT LE LT W CON INDICATIONS: Secondary malignant neoplasm of liver and intrahep TECHNIQUE: Noncontrast 3 mm axial sections acquired of the left hemipelvis and left thigh, with coronal and sagittal reformats. COMPARISON: [facility], CT, CT ABDOMEN PELVIS WO/W CON, 01/26/2022, 20:06. FINDINGS: Image quality: Excellent. Bones: No discrete lytic or sclerotic lesion is seen in left femur. Moderate left hip joint osteoarthritic changes are seen with joint space narrowing, subchondral sclerosis and cyst formation. No evidence of avascular necrosis of femoral head. Visualized portion of left hemipelvis shows possible permeated lesion involving left anterior pubic bone adjacent to symphysis pubis series 2, image 34 concerning for metastatic disease. No pelvic fracture or dislocation. Right hip prosthesis is partially visualized. There is [id number] tricompartmental osteoarthritis in right knee joint. No suspicious lesion is seen in proximal tibia shaft and proximal fibula. Soft tissues: There is no significant joint effusion. No abnormal soft tissue calcifications. Possible intramuscular lipoma within left adductor cherise muscle is seen. No other soft tissue or intramuscular mass or fluid collection is seen. IMPRESSION: 1. No definite lytic or blastic lesion is seen in left femur. Left hip and left knee joint osteoarthritis. No fracture or dislocation. No evidence of avascular necrosis. 2. Possible permeated lesion involving anterior aspect of left pubic bone adjacent to symphysis pubis as above concerning for bony metastasis. 3. Incidentally noted of intramuscular lipoma within left adductor cherise muscle. No other soft tissue mass or fluid collection is seen. Dictated by: Jaspreet Mathur M.D. on 02/17/2022 at 16:33 Approved by: Jaspreet Mathur M.D. on 02/17/2022 at 17:04
== END ==
PROVIDERS: PCP Internal Medicine; Referring Provider Nurse Practitioner; Visit Provider Nurse Practitioner
DX: C78.7 Secondary malignant neoplasm of liver and intrahepatic bile duct (principal); M16.12 Unilateral primary osteoarthritis, left hip; M17.12 Unilateral primary osteoarthritis, left knee; D17.9 Benign lipomatous neoplasm, unspecified
CPT/HCPCS: 73700

== ENCOUNTER → 2022-02-26 07:57 | Outpatient (CLI) | payer MEDICARE, OTHER, SELFPAY ==
[2022-02-26 08:53] LABS: Appearance Urine UA CLEAR; Bilirubin Urine UA NEGATIVE (NEGATIVE); Color Urine UA YELLOW; Glucose Urine UA NEGATIVE (Negative); Ketones Urine UA NEGATIVE (NEGATIVE); Leukocyte Esterase Urine UA NEGATIVE (NEGATIVE); Nitrite Urine UA NEGATIVE (Negative); Occult Blood Urine UA TRACE-LYSED (Negative); Protein Urine UA 1+ (Negative); Urobilinogen Urine UA 0.2 E.U./dL (0.2)
[2022-02-26 08:55] LABS: Bacteria Urine None Seen; Culture Indicated Urine Cult Not Indicated; Mucus Urine 1+ (Negative); RBC Urine None Seen (0-5/HPF); Squamous Epithelial Cell Urine 1-5 /HPF (0-5/HPF); WBC Urine None Seen (0-5/HPF)
[2022-02-26 09:16] LABS: Add Manual Diff / Slide Review NO; Basophils Absolute Auto 100 /uL (0-100); Basophils Percent Auto 1.4 % (0-2); Eosinophils Absolute Auto 400 /uL (0-450); Eosinophils Percent Auto 4.3 % (2-4); Hematocrit 33.7 % (41-53); Hemoglobin 11.1 g/dL (13.5-17.5); Lymphocytes Absolute Auto 3800 /uL (1100-4500); Lymphocytes Percent Auto 43.6 % (25-40); Mean Corpuscular HGB Conc 32.9 % (30-36); Mean Corpuscular Hemoglobin 26.8 PG (26-34); Mean Corpuscular Volume 81.7 fL (80-100); Monocytes Absolute Auto 600 /uL (0-900); Monocytes Percent Auto 6.6 % (3-14); Neutrophils Absolute Auto 3800 /uL (1500-7000); Neutrophils Percent Auto 44.1 % (50-75); Platelet Count 521 X10^3/uL (150-400); Red Blood Cell Count 4.12 X10^6/uL (4.5-5.9); White Blood Cell Count 8.7 X10^3/uL (4.5-11.0)
[2022-02-26 09:48] LABS: Alanine Aminotransferase 13 IU/L (<50); Albumin 2.9 g/dL (3.5-5.0); Albumin Globulin Ratio 1.1 (1.0-2.8); Alkaline Phosphatase 219 U/L (38-126); Aspartate Aminotransferase 28 IU/L (17-59); BUN Creatinine Ratio 11.6 (6-22); Bilirubin Total 0.3 mg/dL (0.2-1.3); Bilirubin Unconjugated 0.3 mg/dL (0.0-1.1); Blood Urea Nitrogen 8 mg/dL (9-20); Calcium 8.2 mg/dL (8.4-10.2); Carbon Dioxide 30 mmol/L (22-32); Chloride 102 mmol/L (98-107); Estimated Glomerular Filt Rate > 60 mL/min (>60); Globulin 2.7 g/dL (1.7-4.1); Glucose 94 mg/dL (80-110); HEMOLYSIS < 15 (0-50); Lactate Dehydrogenase 523 U/L (313-618); Phosphorous 3.8 mg/dL (2.3-3.7); Potassium 3.7 mmol/L (3.4-5.1); Sodium 135 mmol/L (137-145); Total Protein 5.6 g/dL (6.3-8.2)
[2022-02-26 10:07] LABS: Free T4, Direct Thyroxine 0.71 ng/dL (0.78-2.19)
== END ==
PROVIDERS: PCP Internal Medicine; Referring Provider Physician Assistant Medical; Visit Provider Physician Assistant Medical
DX: C78.7 Secondary malignant neoplasm of liver and intrahepatic bile duct (principal); C80.1 Malignant (primary) neoplasm, unspecified
CPT/HCPCS: 36415; 80069; 80076; 81001; 83615; 84439; 84443; 85025

== ENCOUNTER → 2022-02-26 17:41 | Outpatient (CLI) | payer MEDICARE, OTHER, SELFPAY ==
--- NOTE | 2022-02-26 | DI.MRI.S_ITS ---
PROCEDURE: MR PELIS WO/W CON INDICATIONS: Pain in left hip/Second malignant neoplasm of bone TECHNIQUE: Noncontrast coronal T1 spin echo and STIR, sagittal T1 spin echo with fat saturation and STIR, axial T1 spin echo and T2 fast spin echo with fat saturation. After the administration of contrast, axial/sagittal/coronal T1 spin echo with fat saturation through the pelvis. COMPARISON: [facility], CT, CT LE LT WO CON, 02/17/2022, 10:10. FINDINGS: Image quality: Diagnostic. Significant susceptibility artifacts from right hip prosthesis are noted. Bones: There are extensive marrow signal abnormality throughout visualized lower lumbar spine, bilateral sacral alae and bilateral iliac bones more prominent on the left side. Similar ill-defined area of marrow signal abnormality in left superior and inferior pubic rami are seen extending to symphysis pubis , left ischial tuberosity, as well as anterior superior left acetabulum. Suggestion of marrow signal abnormality in visualized right superior and inferior pubic rami extending to right ischial tuberosity is also noted. Additional areas of abnormal marrow signal are also noted involving bilateral proximal femoral shaft and lesser trochanter. After IV contrast infusion, heterogeneous enhancement throughout the above-mentioned area of marrow signal abnormality is seen consistent with extensive bony metastatic disease. No pathologic fracture is seen. Soft tissues: No gross soft tissue masses are visualized. The scanned muscles demonstrate normal overall bulk and internal signal. Subcutaneous tissues appear normal as well. No abnormal soft tissue enhancement. IMPRESSION: 1. Extensive metastatic disease throughout visualized lower lumbar spine, sacrum, bilateral iliac bones, bilateral superior and inferior pubic rami, bilateral acetabuli, and bilateral proximal femoral shafts as described above. No pathologic fracture. No avascular necrosis of femoral head. 2. No discrete enhancing soft tissue mass is seen. Dictated by: Jaspreet Mathur M.D. on 03/01/2022 at 17:28 Approved by: Jaspreet Mathur M.D. on 03/01/2022 at 17:38
== END ==
PROVIDERS: PCP Internal Medicine; Referring Provider Internal Medicine Cardiovascular Disease; Visit Provider Internal Medicine Cardiovascular Disease
DX: M25.552 Pain in left hip (principal); C43.9 Malignant melanoma of skin, unspecified; C79.51 Secondary malignant neoplasm of bone; C78.7 Secondary malignant neoplasm of liver and intrahepatic bile duct; M79.652 Pain in left thigh
CPT/HCPCS: 36415; 72197; 80069; 80076; 81001; 83615; 84439; 84443; 85025; A9579

== ENCOUNTER → 2022-03-19 13:02 | Outpatient (CLI) | payer MEDICARE, OTHER, SELFPAY ==
--- NOTE | 2022-03-19 | DI.CT.S_ITS ---
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 Coronal and sagittal reformats were performed. For radiation dose reduction, the following was used: automated exposure control, adjustment of mA and/or kV according to patient size. COMPARISON:[facility], CT, CT CHEST ABD PEL W CON, 04/17/2020, 11:54. FINDINGS: Image quality: Excellent. CHEST: Lower Neck: Decreased supraclavicular lymph nodes. Thyroid: Small thyroid nodules again seen these are under 1.5 cm. Axillae: Left axillary clips. Chest Wall: Unremarkable. Lungs and Airways: Scattered scarring/atelectasis. Pulmonary nodules have decreased in size, for example lesion in the right upper lobe (6/58) measuring 2-3 mm. Pleura: No pneumothorax or pleural effusions. Heart: Heart size is normal. No pericardial effusion. Thoracic Vessels: The aorta and pulmonary arteries demonstrate normal size. Mediastinum and [place]: No enlarged lymph nodes. Esophagus: No wall thickening. <No> hiatal hernia. ABDOMEN: Liver: Numerous hepatic metastases, difficult to compare to prior noncontrast imaging, probably decreased. Index lesion in segment 5 measures 2.2 x 1.8 cm (2/60). Gallbladder: Unremarkable Biliary ducts: Unremarkable. Pancreas: Unremarkable. Spleen: Unremarkable. Adrenal Glands: Decreased left adrenal thickening Kidneys and Ureters: Decreased perinephric soft tissue deposits. Stomach and Bowel: There is thickening and irregularity at the anal verge, not well evaluated. Peritoneum: No abnormal intraperitoneal fluid. No free air. Omental nodularity is less apparent Ventral Wall: Fat containing umbilical hernia. Abdominal Nodes: Decreased lymphadenopathy, for example left periaortic node (/69 measuring 10 mm). Vessels: Atherosclerotic calcifications. PELVIS: Pelvic Organs: Prostate calcifications. Prostatomegaly. Bladder is not well evaluated. Bladder: Bladder is not well evaluated. Pelvic Nodes: No enlarged lymph nodes. Miscellaneous: No inguinal hernias are seen. Left thigh lipoma. Bones: Right hip arthroplasty with metallic artifact limiting evaluation. Spondylosis. Increased appearance of bone disease with sclerosis. There is a lytic lesion with surrounding sclerosis and possible nondisplaced pathologic fracture in the mid sternum. IMPRESSION: Overall decreased burden of disease in the lungs, thoracoabdominal lymph nodes, retroperitoneum, omentum, left adrenal. Liver disease is also likely decrease, although comparison is difficult to prior noncontrast imaging. Increased mixed sclerotic and lytic appearance of numerous bone lesions could be due to treatment response given disease response elsewhere. Attention on follow-up imaging. Of note, there is increased lytic component to the midsternal lesion with a possible nondisplaced pathologic fracture. This was noted as an urgent result in PACS. Thickening and irregularity at the anal verge is not well evaluated. Correlate with clinical exam as needed and on follow-up imaging. Previously described masslike wall thickening of the bladder is not well seen due to adjacent metallic artifact. Attention on follow-up imaging or cystoscopy. Dictated by: Kirt Dumont M.D. on 03/19/2022 at 17:07 Approved by: Kirt Dumont M.D. on 03/19/2022 at 17:28
--- NOTE | 2022-03-19 | DI.MRI.S_ITS ---
PROCEDURE: MR HEAD/BRAIN WO/W CON INDICATIONS: 76-year-old male with metastatic melanoma TECHNIQUE: Noncontrast axial T1 spin echo, axial T2 fast spin echo, sagittal and axial FLAIR, coronal T2 fast spin echo, axial gradient echo, axial diffusion and ADC through the brain. After the administration of contrast, axial and coronal and sagittal 3D VIBE or T1 spin echo with fat saturation through the brain. COMPARISON: [facility], , MR HEAD/BRAIN WO/W CON, 01/20/2022, 11:30. FINDINGS: Image quality: Excellent. CSF Spaces: Basal cisterns are patent. No extra-axial fluid collections. Ventricles are normal in size and shape. Brain: Multifocal metastatic nodules along the birch-white junction again show evidence of old blood products consistent with hemorrhagic metastasis. Lesions now show decreasing central enhancement with persistent peripheral enhancement and mild contraction. No new lesions. No significant cerebral edema or midline shift. The brainstem appears normal. Diffusion-weighted images demonstrate no acute infarct. Normal intravascular flow voids are present. Skull and face: Calvarial marrow is normal in signal. Orbits appear normal. Sinuses: Sinuses and mastoids appear clear. IMPRESSION: 1. Multifocal metastatic nodules with old hemorrhagic components show slight retraction and decreased central intensity, probably reflecting a response to treatment. No new lesions. Approved by: Alonso Rosa M.D. on 03/19/2022 at 15:24
== END ==
PROVIDERS: PCP Internal Medicine; Referring Provider Physician Assistant Medical; Visit Provider Physician Assistant Medical
DX: C43.59 Malignant melanoma of other part of trunk (principal); C79.31 Secondary malignant neoplasm of brain; C78.7 Secondary malignant neoplasm of liver and intrahepatic bile duct; C77.2 Secondary and unspecified malignant neoplasm of intra-abdominal lymph nodes; C78.00 Secondary malignant neoplasm of unspecified lung; M89.9 Disorder of bone, unspecified
CPT/HCPCS: 70553; 71260; 74177; Q9967

== ENCOUNTER → 2022-03-29 11:57 | Outpatient (CLI) | payer MEDICARE, OTHER, SELFPAY ==
[2022-03-29 13:41] LABS: Hematocrit 35.6 % (41-53); Hemoglobin 11.8 g/dL (13.5-17.5); Mean Corpuscular HGB Conc 33.1 % (30-36); Mean Corpuscular Hemoglobin 28.3 PG (26-34); Mean Corpuscular Volume 85.4 fL (80-100); Platelet Count 362 X10^3/uL (150-400); Red Blood Cell Count 4.16 X10^6/uL (4.5-5.9); Red Cell Distribution Width 20.2 % (11.6-14.8); White Blood Cell Count 10.2 X10^3/uL (4.5-11.0)
[2022-03-29 13:48] LABS: Add Manual Diff / Slide Review YES
[2022-03-29 14:13] LABS: Free T4, Direct Thyroxine 0.58 ng/dL (0.78-2.19)
[2022-03-29 14:20] LABS: Neutrophils Absolute Manual 3978 /uL (3000-5900); Total Cells Counted 100
[2022-03-29 14:30] LABS: Anisocytosis 1+
== END ==
PROVIDERS: PCP Internal Medicine
DX: C78.7 Secondary malignant neoplasm of liver and intrahepatic bile duct (principal)
CPT/HCPCS: 36415; 84439; 85007; 85025